=== PATIENT | male | born 1950 | race Caucasian/White ===

== ENCOUNTER 2017-01-29 20:45 | Inpatient (IN) | payer BC, OTHER ==
--- NOTE | 2017-01-29 21:09 | DR.GENAD ---
HPI - PCP Primary Care Physician: NHAN - Complaint/Symptoms Chief Complaint Doctors Comments: Patient admits to having dyspnea a lot due to severe heart disease. He stumbled in the house and his glasses cut his left nasal bridge. He came in for evaluation. Patient states that he has severe heart disease, admits to a pace maker and is on blood thinners. He denies fever , vomiting or diarrhea. Chief Complaint:: SHORT OF BREATH, LACERATION TO LEFT EYE - Source History Provided: Patient - Mode of Arrival Mode of Arrival: EMS - Timing Onset of Chief Complaint: 01/29/17 PMH - PMH Past Medical History: Yes Past Medical History: Asthma, CHF, COPD, Coronary Artery Disease, Hypertension, OR Past Surgical History: Yes Surgical History: Angioplasty/Stents, CABG/Valve Surgery, Other Past Surgical History Comment: PACE MAKER, DEFIBRILLATOR - Family History History of Family Medical Conditions: Yes Family Medical History: Diabetes Mellitus, Sudden Cardiac , Hypertension - Social History Does patient currently use any type of tobacco product: Yes Have you used tobacco products in the last 12 months: Yes Type of Tobacco Use: Cigarettes Does any household member use tobacco: No Alcohol Use: None Do you use any recreational Drugs:: No Lives With: Alone Lives Where: Home - infectious screening In the last 2 months have you had wt loss of >10#?: NO Have you had fever, night sweats or hemotysis?: No Have you traveled outside the country in the last 6 months?: No Isolation: Standard ROS - Review of Systems Constitutional: No Symptoms Reported Eyes: No Symptoms Reported ENTM: No Symptoms Reported Respiratoy: Non-Productive Cough, Short of Breath. negative: Stridor, Hemoptysis Cardiovascular: Other (pacemaker) Genitourinary: No Symptoms Reported Neurological: See HPI Musculoskeletal: No Symptoms Reported ( ) Integumentary: Wound (left nasal bridge) Hematologic/Lymphatic: No Symptoms Reported Endocrine: No Symptoms Reported Psychiatric: No Symptoms Reported All Other Systems: Reviewed and Negative PE - Vital Signs Vitals: Blood Pressure [Left Arm] 117/59 Blood Pressure [Right Arm] 101/49 Blood Pressure 101/49 - General Limitations: No Limitations General Appearance: Alert, In No Apparent Distress - Head Head Exam: Normal Inspection, Atraumatic - Eyes Eye exam: Normal Appearance, PERRL, EOMI - ENT ENT Exam: Normal Exam External Ear Exam: Normal External Inspection TM/Canal Exam: Bilateral Normal Nose Exam: Normal Nose Exam Mouth Exam: Normal Inspection Throat Exam: Normal Inspection - Neck Neck Exam: Normal Inspection - Chest Chest Inspection: Normal Inspection - Respiratory Respiratory Exam: Normal Lung Sounds Bilat Respiratory Exam: Bilateral Clear to Auscultation - Cardiovascular Cardiovascular Exam: Regular Rate - Abdominal Exam Abdominal Exam: Normal Inspection Abdominal Tenderness: negative: RUQ, RLQ, LUQ, LLQ, Epigastrium, Suprapubic, Diffuse, Mild, Moderate, Severe, Other - Extremities Extremities Exam: Normal Inspection - Back Back Exam: Normal Inspection - Neurologic Neurological Exam: Alert, Oriented X3, CN II-XII Intact - Psychiatric Psychiatric Exam: Normal Affect - Skin Skin Exam: Warm, Dry, Intact Course - Reevaluation 1st: Improved ROR - Labs Reviewed Laboratory Results Reviewed?: Yes (elevated potassium; preRenal azotemia.) Result Diagrams: 01/29/17 21:30 01/29/17 21:30 Laboratory: WBC 6.2 X10^3/uL (3.6-10.0) 01/29/17 21:30 RBC 3.74 X10^6/uL (4.7-6.0) L 01/29/17 21:30 Hgb 8.8 g/dL (13.5-18.0) L 01/29/17 21:30 Hct 29.2 % (42.0-54.0) L 01/29/17 21:30 MCV 78.0 fL (80.0-100.0) L 01/29/17 21:30 MCH 23.5 pg (27.0-34.0) L 01/29/17 21:30 MCHC 30.0 g/dL (33.0-35.0) L 01/29/17 21:30 RDW 22.5 % (11.6-16.5) H 01/29/17 21:30 Plt Count 203 X10^3/uL (150.0-450.0) 01/29/17 21:30 Plt Count Comment Adequate (ADEQUATE) 01/29/17 21:30 MPV 8.0 fL (7.4-11.0) 01/29/17 21:30 Neut % 57.2 % (42.0-75.0) 01/29/17 21:30 Lymph % 29.7 % (21.0-51.0) 01/29/17 21:30 [place] % 8.5 % (0.0-13.0) 01/29/17 21:30 Eos % 1.4 % (0.9-2.9) 01/29/17 21:30 Baso % 3.2 % (0.2-1.0) H 01/29/17 21:30 Neut # 3.6 x10^3/uL (2.2-4.8) 01/29/17 21:30 Lymph # 1.9 X10^3/uL (1.3-2.9) 01/29/17 21:30 [place] # 0.5 x10^3/uL (0.3-0.8) 01/29/17 21:30 Eos # 0.1 x10^3/uL (0.0-0.2) 01/29/17 21:30 Baso # 0.2 X10^3/uL (0.0-0.1) H 01/29/17 21:30 Absolute Nucleated RBC 0.0 /100WBC 01/29/17 21:30 Total Counted 100 01/29/17 21:30 Neutrophils % (Manual) 60 % (39-76) 01/29/17 21:30 Band Neutrophils % 5 % (0-10) 01/29/17 21:30 Lymphocytes % (Manual) 31 % (13-43) 01/29/17 21:30 Monocytes % (Manual) 3 % (4-9) L 01/29/17 21:30 Eosinophils % (Manual) 1 % (0-6) 01/29/17 21:30 Plt Morphology Comment Normal (NORMAL) 01/29/17 21:30 RBC Morphology Abnormal (NORMAL) 01/29/17 21:30 Hypochromasia 1+ A 01/29/17 21:30 Anisocytosis 2+ A 01/29/17 21:30 INR Target Range - 01/29/17 21:30 INR 1.23 (0.8-1.3) 01/29/17 21:30 PTT 35.4 SECONDS (22.9-36.5) 01/29/17 21:30 PTT Comment - 01/29/17 21:30 D-Dimer 737 ng/mL (0-400) H* 01/29/17 21:30 Sample Site Lbra 01/29/17 23:36 ABG pH 7.330 (7.35-7.45) L 01/29/17 23:36 ABG pCO2 40.0 mmHg (35.0-45.0) 01/29/17 23:36 ABG pO2 49.0 mmHg (80.0-100.0) L* 01/29/17 23:36 ABG HCO3 21.1 mmol/L (22-26) L 01/29/17 23:36 ABG O2 Saturation 81.0 % (90-100) L* 01/29/17 23:36 ABG Base Excess -4.5 mmol/L (-2.0-2.0) L 01/29/17 23:36 Brad Test Na 01/29/17 23:36 FiO2 21 01/29/17 23:36 Blood Gas Comments Adeola abg well-mtf 01/29/17 23:36 Sodium 142 mmol/L (136-145) 01/29/17 21:30 Corrected Sodium 143 mmol/L (136-145) 01/29/17 21:30 Potassium 5.7 mmol/L (3.5-5.1) H 01/29/17 21:30 Chloride 108 mmol/L (98-107) H 01/29/17 21:30 Carbon Dioxide 23.3 mmol/L (21-32) 01/29/17 21:30 BUN 26 mg/dL (7-18) H 01/29/17 21:30 Creatinine 2.38 mg/dL (0.70-1.30) H 01/29/17 21:30 Est GFR (MDRD) Af Amer 35 (>60) L 01/29/17 21:30 Est GFR (MDRD) Non-Af 29 (>60) L 01/29/17 21:30 Glucose 122 mg/dL (65-99) H 01/29/17 21:30 Calcium 8.0 mg/dL (8.5-10.1) L 01/29/17 21:30 Corrected Calcium TNP 01/29/17 21:30 Total Bilirubin 0.20 mg/dL (0.2-1.0) 01/29/17 21:30 AST 22 Units/L (15-37) 01/29/17 21:30 ALT 17 Units/L (12-78) 01/29/17 21:30 Alkaline Phosphatase 117 Units/L (46-116) H 01/29/17 21:30 B-Natriuretic Peptide 3020 pg/mL (0-79) H* 01/29/17 21:30 Total Protein 7.1 g/dL (6.4-8.2) 01/29/17 21:30 Albumin 3.4 g/dL (3.4-5.0) 01/29/17 21:30 Globulin 3.7 g/dL (2.5-4.5) 01/29/17 21:30 Albumin/Globulin Ratio 0.9 Ratio (1.1-2.1) L 01/29/17 21:30 - XRAY XRAY Interpreted by: Radiologist (Chest: The heart is mildly enlarged and more prominent. The pulmonary vessels are slightly engorged centrally and more prominent. There are hazy bibasilar interstitial opacities with mild airspace opacity along the right lower lobe which is more apparent. No effusion is seen. There is pacemaker on the left which is unchanged. Impression: Mild cardiomegaly and mild pulmonary edema which is more prominent. Hazy basilar infiltrate or atelectasis.) - Diagnosis Discharge Problem: Pulmonary edema with congestive heart failure - Discharge Plan Condition: Stable - Follow ups/Referrals Follow ups/Referrals: DAYAMI JUSTIN [Primary Care Provider] - 3 days - Instructions
[2017-01-29 21:40] LABS: BASOPHILS # (AUTO) 0.2 X10^3/uL (0.0-0.1); BASOPHILS % (AUTO) 3.2 % (0.2-1.0); EOSINOPHILS # (AUTO) 0.1 x10^3/uL (0.0-0.2); EOSINOPHILS % (AUTO) 1.4 % (0.9-2.9); HEMATOCRIT 29.2 % (42.0-54.0); HEMOGLOBIN 8.8 g/dL (13.5-18.0); LYMPHOCYTES # (AUTO) 1.9 X10^3/uL (1.3-2.9); LYMPHOCYTES % (AUTO) 29.7 % (21.0-51.0); MEAN CORPUSCULAR HEMOGLOBIN 23.5 pg (27.0-34.0); MONOCYTES # (AUTO) 0.5 x10^3/uL (0.3-0.8); MONOCYTES % (AUTO) 8.5 % (0.0-13.0); NEUTROPHILS # (AUTO) 3.6 x10^3/uL (2.2-4.8); NEUTROPHILS % (AUTO) 57.2 % (42.0-75.0); PLATELET COUNT 203 X10^3/uL (150.0-450.0); RED BLOOD COUNT 3.74 X10^6/uL (4.7-6.0); RED CELL DISTRIBUTION WIDTH 22.5 % (11.6-16.5); WHITE BLOOD COUNT 6.2 X10^3/uL (3.6-10.0)
--- NOTE | 2017-01-29 21:47 | RAD ---
HISTORY: Shortness of breath Study: Portable AP chest Comparison: 05/05/2016 Findings: The heart is mildly enlarged and more prominent. The pulmonary vessels are slightly engorged central ly and more prominent . There are hazy bibasilar interstitial opacities with mild airspace opacity a long the right lower lobe which more apparent. No effusion is seen. There is a pacemaker on the left which is unchanged. IMPRESSION: Mild cardiomegaly and mild pulmonary edema which is more prominent . Hazy basilar infiltrate or atelectasis. Reported By:
[2017-01-29 21:54] LABS: ALANINE AMINOTRANSFERASE 17 Units/L (12-78); ALBUMIN 3.4 g/dL (3.4-5.0); ALKALINE PHOSPHATASE 117 Units/L (46-116); ASPARTATE AMINO TRANSFERASE 22 Units/L (15-37); BLOOD UREA NITROGEN 26 mg/dL (7-18); CARBON DIOXIDE 23.3 mmol/L (21-32); CHLORIDE 108 mmol/L (98-107); COR NA(FOR HYPERGLY) 143 mmol/L (136-145); CREATININE 2.38 mg/dL (0.70-1.30); GLUCOSE 122 mg/dL (65-99); SODIUM 142 mmol/L (136-145); TOTAL PROTEIN 7.1 g/dL (6.4-8.2); eGFR BLACK RACES 35 (>60); eGFR NON BLACK RACES 29 (>60)
[2017-01-29] MEDS ORDERED: NS 1000 ML 1,000 ML ONE (22:08)
[2017-01-29] MEDS ORDERED: NS 1000 ML 1,000 ML IV ONE (22:13)
[2017-01-29 22:17] LABS: ANISOCYTOSIS 2+; BAND NEUTROPHILS % 5 % (0-10); HYPOCHROMASIA 1+; PLATELET MORPHOLOGY COMMENT NORMAL (NORMAL)
[2017-01-29] MEDS ORDERED: HumuLIN R IV ONE (22:17)
[2017-01-29] MEDS ORDERED: D50W ABBOJECT SYR IV ONE (22:18)
[2017-01-29] MEDS ORDERED: LASIX IVP ONE ×2 (22:20→22:58)
[2017-01-29 22:23] LABS: D DIMER 737 ng/mL (0-400)
[2017-01-29] MEDS ORDERED: PROVENTIL NEB TX 0.083% 2.5MG/ 3ML NEB ONE (22:25)
[2017-01-29] MEDS ORDERED: ATROVENT NEB TX 0.02% ONE (22:46)
[2017-01-29] MEDS ORDERED: SALINE 3% 15 ML NEB TX ONE (22:47)
[2017-01-29] MEDS ORDERED: CIPRO IV 400 MG PREMIX* 400 MG/200 ML IV.SOLN. IV SCH (23:45)
[2017-01-29] MEDS ORDERED: CIPRO IV 400 MG PREMIX* 400 MG/200 ML IV.SOLN. IV ONE (23:46)
[2017-01-29] MEDS ORDERED: PROVENTIL NEB TX 0.083% 2.5MG/ 3ML ONE (23:49)
[2017-01-30] MEDS ORDERED: CIPRO IV 400 MG PREMIX* 400 MG/200 ML IV.SOLN. IV ONE (00:06)
[2017-01-30] MEDS ORDERED: ZOFRAN INJ 4 MG VIAL IVP PRN (00:41)
[2017-01-30] MEDS ORDERED: MORPHINE SULFATE INJ 4 MG IVP PRN (00:42)
[2017-01-30] MEDS ORDERED: ZOSYN VIAL 4.5 GM 4.5 GM in NS 100 ML IV + SPIKE MINIBAG* 100 ML IV SCH (00:45)
[2017-01-30 01:43] VITALS: BMI 22.4
[2017-01-30 05:38] LABS: BASOPHILS # (AUTO) 0.2 X10^3/uL (0.0-0.1); BASOPHILS % (AUTO) 2.6 % (0.2-1.0); EOSINOPHILS % (AUTO) 0.3 % (0.9-2.9); HEMOGLOBIN 8.3 g/dL (13.5-18.0); LYMPHOCYTES # (AUTO) 1.1 X10^3/uL (1.3-2.9); LYMPHOCYTES % (AUTO) 16.8 % (21.0-51.0); MEAN CORPUSCULAR HEMOGLOBIN 23.2 pg (27.0-34.0); MEAN CORPUSCULAR HGB CONC 29.8 g/dL (33.0-35.0); MEAN PLATELET VOLUME 8.4 fL (7.4-11.0); MONOCYTES # (AUTO) 0.6 x10^3/uL (0.3-0.8); MONOCYTES % (AUTO) 9.4 % (0.0-13.0); NEUTROPHILS # (AUTO) 4.5 x10^3/uL (2.2-4.8); NEUTROPHILS % (AUTO) 70.9 % (42.0-75.0); PLATELET COUNT 196 X10^3/uL (150.0-450.0); RED BLOOD COUNT 3.59 X10^6/uL (4.7-6.0); RED CELL DISTRIBUTION WIDTH 22.9 % (11.6-16.5); WHITE BLOOD COUNT 6.4 X10^3/uL (3.6-10.0)
[2017-01-30 05:45] LABS: ALBUMIN 3.2 g/dL (3.4-5.0); CALCIUM 7.7 mg/dL (8.5-10.1); CARBON DIOXIDE 22.8 mmol/L (21-32); COR CA(FOR HYPOALB) 8.3 mg/dL (8.5-10.1); CREATININE 2.27 mg/dL (0.70-1.30); TOTAL PROTEIN 6.9 g/dL (6.4-8.2)
[2017-01-30 06:03] LABS: ANISOCYTOSIS 2+; HYPOCHROMASIA 1+; PLATELET MORPHOLOGY COMMENT NORMAL (NORMAL)
[2017-01-30] MEDS: PROVENTIL NEB TX 0.083% 2.5MG/ 3ML NEB SCH ×4 (08:57→21:37)
[2017-01-30] MEDS ORDERED: [UNRECOGNIZED DRUG - OTHER] PO PRN (09:49)
[2017-01-30] MEDS: NICODERM PATCH 21 MG/24 HR TD SCH (11:00)
[2017-01-30] MEDS: LASIX IVP SCH ×2 (11:00→20:17)
[2017-01-30] MEDS: BUSPAR PO SCH (11:21)
--- NOTE | 2017-01-30 11:27 | CT ---
CT head without contrast Indication: Fall with left eye injury Comparison: 11/26/2015 Technique: CT images of the head were obtained without contrast per protocol. Automatic exposure con trol was utilized. Findings: There is mild generalized age-appropriate brain atrophy with concomitant ventricular and s ulcal enlargement, similar to prior. No acute bleed, mass, mass effect, or abnormal extra-axial nery ection identified. No acute calvarial fracture is seen. The visualized paranasal sinuses and mastoid air cells are clear. Impression: No evidence for acute intracranial abnormality. Reported By:
[2017-01-30] MEDS: PENTASA CR PO SCH ×2 (11:56→20:24)
--- NOTE | 2017-01-30 11:57 | CT ---
HISTORY: Injury, fall, left facial trauma Study: Maxillofacial CT without contrast Comparison: None Technique: Axial non contrast images with coronal and sagittal reformats. Dose reduction procedures were used with MA/kv adjusted for body size. Findings: There is no evidence for mandibular fracture. There is a slightly depressed fracture of the left christine e of the nasal bone. There is no evidence for maxillofacial fracture. There is no evidence for orbit al fracture. The globes are intact. The retro orbital soft tissues are normal. The nasal septum is n ear midline. The sinuses are clear. IMPRESSION: Slightly depressed fracture of the left side of the nasal bone Reported By:
--- NOTE | 2017-01-30 12:37 | DR.H&P ---
H&P - History & Physical for Day of: H&P Date: 01/30/17 - Chief Complaint Chief Complaint: LEFT EYE LACERATION, SOB, SYNCOPE - Allergies Allergies/Adverse Reactions: Allergies Allergy/AdvReac Type Severity Reaction Status Date / Time No Known Drug Allergy Allergy Verified 01/14/16 23:27 - History of Present Illness History of Present Illness: ER ADMISSION AFTER PRESENTING WITH CO Patient admits to having dyspnea a lot due to severe heart disease. He stumbled in the house and his glasses cut his left nasal bridge. He came in for evaluation. Patient states that he has severe heart disease, admits to a pace maker and is on blood thinners. He denies fever, vomiting or diarrhea. pt has pmh of cad, copd, oa, chf, crf, depression. pt admitted for cardiac monitoring, resp care, further evaluation of syncope. - Past Medical History Past Medical History: Anxiety, Arthritis, Asthma, CHF, COPD, Coronary Artery Disease, Depression, GERD, Hypertension, CT, Renal Disease Additional Medical History: GLAUCOMA, BACK PAIN, INSOMNIA - Past Surgical History Surgical History: Angioplasty/Stents, CABG/Valve Surgery, Other Additional Surgical History: PACEMAKER, DEFIBRILLATOR - Family History Family Medical History: Diabetes Mellitus, Cancer, Sudden Cardiac , Hypertension - Social History Does patient currently use any type of tobacco product: Yes Have you used tobacco products in the last 12 months: Yes Type of Tobacco Use: Cigarettes Does any household member use tobacco: No Alcohol Use: None Drug Use: None - Review of Systems Constitutional: Weakness Eyes: Vision Change (r/t left eye lid injury with mild edema) Respiratory: Cough, Shortness of Breath, Wheezing Cardiovascular: Palpitations, Paroxysmal Noc. Dyspnea, Edema, Light Headedness Gastrointestinal: No Symptoms Reported Genitourinary: No Symptoms Reported Musculoskeletal: Back Pain, Leg Pain Skin: Wound (left inner eye lid upper and lower) Neurological: Weakness - Physical Exam Vital Signs: Temperature 98.5 F Pulse Rate [Left Radial] 72 Respiratory Rate 20 Blood Pressure [Left Arm] 135/62 Blood Pressure [Right Arm] 137/63 O2 Sat by Pulse Oximetry 91 Oriented: Normal Eyes: Other Ear: Normal Nose: Normal Throat: Normal Respiratory: Diminished Throughout, Rhonchi Throughout Cardiovascular: Irregular, Edema (+1 edema ) Auscultation: Bowel Sounds: Normal Palpation: Normal Tenderness: Normal Skin: Decreased Turgur, Wound (laceration to left inner corner of upper lid, inner corner of left lower lid), Ecchymosis Musculoskeletal: Leg, Back:Thoracic, Back:Lumbar, Motor Deficit (lower extremity weakness) Psychiatric: Anxiety Speech Pattern: Clear - Assessment/Plan (1) Syncope Qualifiers: Syncope type: S Encounter type: E Status: Acute Plan: admit, cardiac monitoring, bp control. resume home medication, iv hydration. resp therapy (2) Head injury Qualifiers: Encounter type: E Status: Acute (3) CHF (congestive heart failure) Qualifiers: Congestive heart failure type: C Congestive heart failure chronicity: C Status: Chronic (4) COPD (chronic obstructive pulmonary disease) Qualifiers: COPD type: C Chronic bronchitis type: C Emphysema type: E Status: Chronic (5) DJD (degenerative joint disease), lumbar Qualifiers: Spinal osteoarthritis complication: other spinal osteoarthritis Qualified Code(s): M47.896 - Other spondylosis, lumbar region Status: Chronic (6) GERD (gastroesophageal reflux disease) Qualifiers: Esophagitis presence: E Status: Chronic (7) Hyperlipidemia Qualifiers: Hyperlipidemia type: H Status: Chronic (8) Hypertension Qualifiers: Hypertension type: H Status: Chronic (9) Pacemaker Status: Chronic
--- NOTE | 2017-01-30 12:46 | PCM.PROG ---
Progress Note - Progress Note for Day of Date: 01/30/17 - Subjective Subjective: left eye pain and joshi, continue sob. CT HEAD AND FACIAL BONES DUE TO SYNCOPE WITH HEAD/FACE INJURY. PLAN TO RESTART HOME MEDS, CHF MANAGEMENT, LASIX 40MG IV BID, STRICT I & OS, CARDIAC MONITORING, BB AND LIPID CONTROL. REPEAT AM LABS, CXR - Past Medical Family Social History Allergies: Allergies No Known Drug Allergy Allergy (Verified 01/14/16 23:27) - Vital Signs and I&O's Vital Signs: Temperature 98.5 F Pulse Rate [Left Radial] 72 Respiratory Rate 20 Blood Pressure [Left Arm] 135/62 Blood Pressure [Right Arm] 137/63 O2 Sat by Pulse Oximetry 91 Intake and Output: Intake & Output 01/28/17 01/29/17 01/30/17 01/31/17 11:59 11:59 11:59 11:59 Intake Total 120 Output Total 200 Balance -80 - Physical Exam Oriented: Normal Eyes: Other Ear: Normal Nose: Normal Throat: Normal Cardiovascular: Irregular, Edema (+1 edema ) Auscultation: Bowel Sounds: Normal Tenderness: Normal Skin: Decreased Turgur, Wound (laceration to left inner corner of upper lid, inner corner of left lower lid), Ecchymosis Musculoskeletal: Leg, Back:Thoracic, Back:Lumbar, Motor Deficit (lower extremity weakness) Psychiatric: Anxiety Speech Pattern: Clear - Laboratory and Diagnostics Result Diagrams: 01/30/17 03:45 01/30/17 03:45 Labs: Laboratory WBC 6.4 X10^3/uL (3.6-10.0) 01/30/17 03:45 RBC 3.59 X10^6/uL (4.7-6.0) L 01/30/17 03:45 Hgb 8.3 g/dL (13.5-18.0) L 01/30/17 03:45 Hct 28.0 % (42.0-54.0) L 01/30/17 03:45 MCV 78.0 fL (80.0-100.0) L 01/30/17 03:45 MCH 23.2 pg (27.0-34.0) L 01/30/17 03:45 MCHC 29.8 g/dL (33.0-35.0) L 01/30/17 03:45 RDW 22.9 % (11.6-16.5) H 01/30/17 03:45 Plt Count 196 X10^3/uL (150.0-450.0) 01/30/17 03:45 Plt Count Comment Adequate (ADEQUATE) 01/30/17 03:45 MPV 8.4 fL (7.4-11.0) 01/30/17 03:45 Neut % 70.9 % (42.0-75.0) 01/30/17 03:45 Lymph % 16.8 % (21.0-51.0) L 01/30/17 03:45 [place] % 9.4 % (0.0-13.0) 01/30/17 03:45 Eos % 0.3 % (0.9-2.9) L 01/30/17 03:45 Baso % 2.6 % (0.2-1.0) H 01/30/17 03:45 Neut # 4.5 x10^3/uL (2.2-4.8) 01/30/17 03:45 Lymph # 1.1 X10^3/uL (1.3-2.9) L 01/30/17 03:45 [place] # 0.6 x10^3/uL (0.3-0.8) 01/30/17 03:45 Eos # 0.0 x10^3/uL (0.0-0.2) 01/30/17 03:45 Baso # 0.2 X10^3/uL (0.0-0.1) H 01/30/17 03:45 Absolute Nucleated RBC 0.1 /100WBC 01/30/17 03:45 Total Counted 100 01/29/17 21:30 Neutrophils % (Manual) 60 % (39-76) 01/29/17 21:30 Band Neutrophils % 5 % (0-10) 01/29/17 21:30 Lymphocytes % (Manual) 31 % (13-43) 01/29/17 21:30 Monocytes % (Manual) 3 % (4-9) L 01/29/17 21:30 Eosinophils % (Manual) 1 % (0-6) 01/29/17 21:30 Plt Morphology Comment Normal (NORMAL) 01/30/17 03:45 RBC Morphology Abnormal (NORMAL) 01/30/17 03:45 Hypochromasia 1+ A 01/30/17 03:45 Anisocytosis 2+ A 01/30/17 03:45 INR Target Range - 01/29/17 21:30 INR 1.23 (0.8-1.3) 01/29/17 21:30 PTT 35.4 SECONDS (22.9-36.5) 01/29/17 21:30 PTT Comment - 01/29/17 21:30 D-Dimer 737 ng/mL (0-400) H* 01/29/17 21:30 Sample Site Lbra 01/29/17 23:36 ABG pH 7.330 (7.35-7.45) L 01/29/17 23:36 ABG pCO2 40.0 mmHg (35.0-45.0) 01/29/17 23:36 ABG pO2 49.0 mmHg (80.0-100.0) L* 01/29/17 23:36 ABG HCO3 21.1 mmol/L (22-26) L 01/29/17 23:36 ABG O2 Saturation 81.0 % (90-100) L* 01/29/17 23:36 ABG Base Excess -4.5 mmol/L (-2.0-2.0) L 01/29/17 23:36 Brad Test Na 01/29/17 23:36 FiO2 21 01/29/17 23:36 Blood Gas Comments Adeola abg well-mtf 01/29/17 23:36 Sodium 141 mmol/L (136-145) 01/30/17 03:45 Corrected Sodium 141 mmol/L (136-145) 01/30/17 03:45 Potassium 5.1 mmol/L (3.5-5.1) 01/30/17 03:45 Chloride 106 mmol/L (98-107) 01/30/17 03:45 Carbon Dioxide 22.8 mmol/L (21-32) 01/30/17 03:45 BUN 26 mg/dL (7-18) H 01/30/17 03:45 Creatinine 2.27 mg/dL (0.70-1.30) H 01/30/17 03:45 Est GFR (MDRD) Af Amer 37 (>60) L 01/30/17 03:45 Est GFR (MDRD) Non-Af 31 (>60) L 01/30/17 03:45 Glucose 113 mg/dL (65-99) H 01/30/17 03:45 Calcium 7.7 mg/dL (8.5-10.1) L 01/30/17 03:45 Corrected Calcium 8.3 mg/dL (8.5-10.1) L 01/30/17 03:45 Total Bilirubin 0.20 mg/dL (0.2-1.0) 01/30/17 03:45 AST 26 Units/L (15-37) 01/30/17 03:45 ALT 12 Units/L (12-78) 01/30/17 03:45 Alkaline Phosphatase 112 Units/L (46-116) 01/30/17 03:45 B-Natriuretic Peptide 3020 pg/mL (0-79) H* 01/29/17 21:30 Total Protein 6.9 g/dL (6.4-8.2) 01/30/17 03:45 Albumin 3.2 g/dL (3.4-5.0) L 01/30/17 03:45 Globulin 3.7 g/dL (2.5-4.5) 01/30/17 03:45 Albumin/Globulin Ratio 0.9 Ratio (1.1-2.1) L 01/30/17 03:45 - Plan (1) Syncope Status: Acute Qualifiers: Syncope type: S Encounter type: E Plan: admit, cardiac monitoring, bp control. resume home medication, iv hydration. resp therapy (2) CHF (congestive heart failure) Status: Chronic Qualifiers: Congestive heart failure type: C Congestive heart failure chronicity: C Plan: STRICT I & O'S BB AND DIG. IV LASIX, DAILY WEIGHTS, REPEAT AM CXR (3) Head injury Status: Acute Qualifiers: Encounter type: E (4) COPD (chronic obstructive pulmonary disease) Status: Chronic Qualifiers: COPD type: C Chronic bronchitis type: C Emphysema type: E Plan: CONTINUE RESP THERAPY (5) DJD (degenerative joint disease), lumbar Status: Chronic Qualifiers: Spinal osteoarthritis complication: other spinal osteoarthritis Qualified Code(s): M47.896 - Other spondylosis, lumbar region (6) GERD (gastroesophageal reflux disease) Status: Chronic Qualifiers: Esophagitis presence: E (7) Hyperlipidemia Status: Chronic Qualifiers: Hyperlipidemia type: H (8) Hypertension Status: Chronic Qualifiers: Hypertension type: H (9) Pacemaker Status: Chronic
[2017-01-30] MEDS ORDERED: SNACK - Diabetic Appropriate PO SCH (20:00)
[2017-01-30] MEDS: COLACE CAP 100 MG PO SCH (20:17)
[2017-01-30] MEDS: M.S. CONTIN 30 MG EXTENDED RELEASE PO PRN (20:18)
[2017-01-30] MEDS: AMBIEN PO SCH (20:18)
[2017-01-30] MEDS: COREG TAB 3.125 MG PO SCH (20:18)
[2017-01-30] MEDS ORDERED: [UNRECOGNIZED DRUG - OTHER] PO SCH (21:00)
[2017-01-30] MEDS ORDERED: MESALAMINE PO SCH (21:00)
[2017-01-30] MEDS ORDERED: ADVAIR DISKUS 250/50 IN SCH (21:00)
[2017-01-30] MEDS: PULMICORT NEB TX 0.5 MG NEB SCH (21:38)
[2017-01-31] MEDS: NORCO 10/325 TAB PO PRN ×2 (01:49→07:57)
[2017-01-31 03:57] LABS: BASOPHILS # (AUTO) 0.1 X10^3/uL (0.0-0.1); BASOPHILS % (AUTO) 1.1 % (0.2-1.0); EOSINOPHILS % (AUTO) 0.6 % (0.9-2.9); HEMATOCRIT 24.7 % (42.0-54.0); HEMOGLOBIN 7.6 g/dL (13.5-18.0); LYMPHOCYTES # (AUTO) 1.6 X10^3/uL (1.3-2.9); MEAN CORPUSCULAR HEMOGLOBIN 23.6 pg (27.0-34.0); MEAN CORPUSCULAR HGB CONC 30.9 g/dL (33.0-35.0); MEAN CORPUSCULAR VOLUME 76.3 fL (80.0-100.0); MEAN PLATELET VOLUME 8.5 fL (7.4-11.0); MONOCYTES # (AUTO) 0.6 x10^3/uL (0.3-0.8); MONOCYTES % (AUTO) 10.8 % (0.0-13.0); NEUTROPHILS # (AUTO) 3.1 x10^3/uL (2.2-4.8); NEUTROPHILS % (AUTO) 57.5 % (42.0-75.0); PLATELET COUNT 162 X10^3/uL (150.0-450.0); RED BLOOD COUNT 3.24 X10^6/uL (4.7-6.0); RED CELL DISTRIBUTION WIDTH 22.2 % (11.6-16.5); WHITE BLOOD COUNT 5.3 X10^3/uL (3.6-10.0)
[2017-01-31 04:21] LABS: CARBON DIOXIDE 27.1 mmol/L (21-32); COR CA(FOR HYPOALB) 8.8 mg/dL (8.5-10.1); CREATININE 2.4 mg/dL (0.70-1.30); TOTAL PROTEIN 6.3 g/dL (6.4-8.2)
[2017-01-31 06:08] LABS: ANISOCYTOSIS 2+; HYPOCHROMASIA 1+; PLATELET MORPHOLOGY COMMENT NORMAL (NORMAL)
[2017-01-31] MEDS ORDERED: LASIX PO SCH (09:00)
[2017-01-31] MEDS ORDERED: PHARMACY CONSULT - DOSE _____ XX SCH (09:00)
[2017-01-31] MEDS: PULMICORT NEB TX 0.5 MG NEB SCH ×2 (09:03→20:08)
[2017-01-31] MEDS: PROVENTIL NEB TX 0.083% 2.5MG/ 3ML NEB SCH ×4 (09:04→20:08)
[2017-01-31] MEDS: LASIX IVP SCH ×2 (09:24→21:27)
[2017-01-31] MEDS: COREG TAB 3.125 MG PO SCH ×2 (09:25→21:25)
[2017-01-31] MEDS: LANOXIN PO SCH (09:25)
[2017-01-31] MEDS: ZyrTEC TAB 10 MG PO SCH (09:25)
[2017-01-31] MEDS: ECOTRIN TAB 325 MG PO SCH (09:25)
[2017-01-31] MEDS: COLACE CAP 100 MG PO SCH ×2 (09:25→21:25)
[2017-01-31] MEDS: ALDACTONE TAB 25 MG PO SCH (09:25)
[2017-01-31] MEDS: BUSPAR PO SCH (09:25)
[2017-01-31] MEDS: CORDARONE TAB 200 MG PO SCH (09:26)
[2017-01-31] MEDS: NICODERM PATCH 21 MG/24 HR TD SCH (09:27)
[2017-01-31] MEDS: ZESTRIL TAB 5 MG PO SCH (09:27)
[2017-01-31] MEDS: M.S. CONTIN 30 MG EXTENDED RELEASE PO PRN (09:28)
[2017-01-31] MEDS: PENTASA CR PO SCH ×2 (09:36→21:26)
[2017-01-31] MEDS ORDERED: NS 250 ML IV 250 ML IV ONE (09:41)
[2017-01-31] MEDS ORDERED: LEVAQUIN PREMIX IV 750 MG 750 MG/150 ML BAG IV SCH (10:00)
[2017-01-31] MEDS ORDERED: ZOFRAN INJ 4 MG VIAL 16 MG, ATIVAN INJ 2 MG VIAL 1 MG, DECADRON INJ 10 MG in NS 50 ML I... IV ONE (12:44)
[2017-01-31] MEDS ORDERED: ZOFRAN INJ 4 MG VIAL 16 MG, ATIVAN INJ 2 MG VIAL 1 MG, DECADRON INJ 10 MG in NS 50 ML I... IV SCH (14:00)
[2017-01-31] MEDS ORDERED: TYLENOL 325 MG TAB PO PRN (15:30)
[2017-01-31] MEDS ORDERED: NS 500 ML IV 500 ML IV ONE (15:30)
[2017-01-31] MEDS: XANAX PO PRN (18:19)
--- NOTE | 2017-01-31 18:59 | PCM.PROG ---
Progress Note - Progress Note for Day of Date: 01/31/17 - Subjective Subjective: PT STATES SOB IMPROVING, PT FEELS BETTER OVERALL, STILL LOWER EXTREMITY MUSCLE WEAKNESS AND ANXIETY. PLAN TO CONSULT PT, CONTINUE IV LASIX REPEAT AM LABS, TYPE AND SCREEN AND OCCULT STOOL DUE TO HGB 7.6, PT HAS CRF - Past Medical Family Social History Past Med/Fam/Surg Hx: No changes since H&P Allergies: Allergies No Known Drug Allergy Allergy (Verified 01/14/16 23:27) - Review of Systems ROS: No change since H&P - Vital Signs and I&O's Vital Signs: Temperature 98.3 F Pulse Rate [Left Radial] 70 Pulse Rate 70 Respiratory Rate 20 Blood Pressure [Left Arm] 127/57 Blood Pressure [Right Arm] 103/50 O2 Sat by Pulse Oximetry 96 Intake and Output: Intake & Output 01/29/17 01/30/17 01/31/17 02/01/17 11:59 11:59 11:59 11:59 Intake Total 120 1210 750 Output Total 200 700 Balance -80 510 750 - Physical Exam Oriented: Normal Eyes: Other Ear: Normal Nose: Normal Throat: Normal Respiratory: Wheezes Cardiovascular: Irregular, Edema (+1 edema ) Auscultation: Bowel Sounds: Normal Tenderness: Normal Skin: Decreased Turg[place], Wound (laceration to left inner corner of upper lid, inner corner of left lower lid), Ecchymosis Musculoskeletal: Leg, Back:Thoracic, Back:Lumbar, Motor Deficit (lower extremity weakness) Psychiatric: Anxiety Speech Pattern: Clear, Appropriate - Laboratory and Diagnostics Result Diagrams: 01/31/17 03:25 01/31/17 03:25 Labs: Laboratory WBC 5.3 X10^3/uL (3.6-10.0) 01/31/17 03:25 RBC 3.24 X10^6/uL (4.7-6.0) L 01/31/17 03:25 Hgb 7.6 g/dL (13.5-18.0) L 01/31/17 03:25 Hct 24.7 % (42.0-54.0) L 01/31/17 03:25 MCV 76.3 fL (80.0-100.0) L 01/31/17 03:25 MCH 23.6 pg (27.0-34.0) L 01/31/17 03:25 MCHC 30.9 g/dL (33.0-35.0) L 01/31/17 03:25 RDW 22.2 % (11.6-16.5) H 01/31/17 03:25 Plt Count 162 X10^3/uL (150.0-450.0) 01/31/17 03:25 Plt Count Comment Adequate (ADEQUATE) 01/31/17 03:25 MPV 8.5 fL (7.4-11.0) 01/31/17 03:25 Neut % 57.5 % (42.0-75.0) 01/31/17 03:25 Lymph % 30.0 % (21.0-51.0) 01/31/17 03:25 [place] % 10.8 % (0.0-13.0) 01/31/17 03:25 Eos % 0.6 % (0.9-2.9) L 01/31/17 03:25 Baso % 1.1 % (0.2-1.0) H 01/31/17 03:25 Neut # 3.1 x10^3/uL (2.2-4.8) 01/31/17 03:25 Lymph # 1.6 X10^3/uL (1.3-2.9) 01/31/17 03:25 [place] # 0.6 x10^3/uL (0.3-0.8) 01/31/17 03:25 Eos # 0.0 x10^3/uL (0.0-0.2) 01/31/17 03:25 Baso # 0.1 X10^3/uL (0.0-0.1) 01/31/17 03:25 Absolute Nucleated RBC 0.2 /100WBC 01/31/17 03:25 Total Counted 100 01/29/17 21:30 Neutrophils % (Manual) 60 % (39-76) 01/29/17 21:30 Band Neutrophils % 5 % (0-10) 01/29/17 21:30 Lymphocytes % (Manual) 31 % (13-43) 01/29/17 21:30 Monocytes % (Manual) 3 % (4-9) L 01/29/17 21:30 Eosinophils % (Manual) 1 % (0-6) 01/29/17 21:30 Plt Morphology Comment Normal (NORMAL) 01/31/17 03:25 RBC Morphology Abnormal (NORMAL) 01/31/17 03:25 Hypochromasia 1+ A 01/31/17 03:25 Anisocytosis 2+ A 01/31/17 03:25 INR Target Range - 01/29/17 21:30 INR 1.23 (0.8-1.3) 01/29/17 21:30 PTT 35.4 SECONDS (22.9-36.5) 01/29/17 21:30 PTT Comment - 01/29/17 21:30 D-Dimer 737 ng/mL (0-400) H* 01/29/17 21:30 Sample Site Cancelled 01/29/17 23:36 ABG pH Cancelled 01/29/17 23:36 ABG pCO2 Cancelled 01/29/17 23:36 ABG pO2 Cancelled 01/29/17 23:36 ABG HCO3 Cancelled 01/29/17 23:36 ABG O2 Saturation Cancelled 01/29/17 23:36 ABG Base Excess Cancelled 01/29/17 23:36 Brad Test Cancelled 01/29/17 23:36 A-a Gradient Cancelled 01/29/17 23:36 FiO2 Cancelled 01/29/17 23:36 Blood Gas Comments Cancelled 01/29/17 23:36 Sodium 143 mmol/L (136-145) 01/31/17 03:25 Corrected Sodium 144 mmol/L (136-145) 01/31/17 03:25 Potassium 4.1 mmol/L (3.5-5.1) 01/31/17 03:25 Chloride 106 mmol/L (98-107) 01/31/17 03:25 Carbon Dioxide 27.1 mmol/L (21-32) 01/31/17 03:25 BUN 26 mg/dL (7-18) H 01/31/17 03:25 Creatinine 2.40 mg/dL (0.70-1.30) H 01/31/17 03:25 Est GFR (MDRD) Af Amer 35 (>60) L 01/31/17 03:25 Est GFR (MDRD) Non-Af 29 (>60) L 01/31/17 03:25 Glucose 143 mg/dL (65-99) H 01/31/17 03:25 Calcium 8.0 mg/dL (8.5-10.1) L 01/31/17 03:25 Corrected Calcium 8.8 mg/dL (8.5-10.1) 01/31/17 03:25 Total Bilirubin 0.40 mg/dL (0.2-1.0) 01/31/17 03:25 AST 17 Units/L (15-37) 01/31/17 03:25 ALT 14 Units/L (12-78) 01/31/17 03:25 Alkaline Phosphatase 101 Units/L (46-116) 01/31/17 03:25 B-Natriuretic Peptide 3020 pg/mL (0-79) H* 01/29/17 21:30 Total Protein 6.3 g/dL (6.4-8.2) L 01/31/17 03:25 Albumin 3.0 g/dL (3.4-5.0) L 01/31/17 03:25 Globulin 3.3 g/dL (2.5-4.5) 01/31/17 03:25 Albumin/Globulin Ratio 0.9 Ratio (1.1-2.1) L 01/31/17 03:25 Blood Type O POSITIVE 01/31/17 16:00 Antibody Screen Negative 01/31/17 16:00 Crossmatch See Detail 01/31/17 16:00 - Plan (1) Syncope Status: Acute Qualifiers: Syncope type: S Encounter type: E Plan: cardiac monitoring, bp control. resume home medication, iv hydration. resp therapy (2) CHF (congestive heart failure) Status: Chronic Qualifiers: Congestive heart failure type: C Congestive heart failure chronicity: C Plan: STRICT I & O'S BB AND DIG. IV LASIX, DAILY WEIGHTS, REPEAT AM CXR (3) Head injury Status: Acute Qualifiers: Encounter type: E (4) COPD (chronic obstructive pulmonary disease) Status: Chronic Qualifiers: COPD type: C Chronic bronchitis type: C Emphysema type: E Plan: CONTINUE RESP THERAPY (5) DJD (degenerative joint disease), lumbar Status: Chronic Qualifiers: Spinal osteoarthritis complication: other spinal osteoarthritis Qualified Code(s): M47.896 - Other spondylosis, lumbar region (6) GERD (gastroesophageal reflux disease) Status: Chronic Qualifiers: Esophagitis presence: E (7) Hyperlipidemia Status: Chronic Qualifiers: Hyperlipidemia type: H (8) Hypertension Status: Chronic Qualifiers: Hypertension type: H (9) Pacemaker Status: Chronic (10) Anemia Status: Acute Qualifiers: Anemia type: A Iron deficiency anemia type: chronic blood loss Vitamin B12 deficiency anemia type: V Folate deficiency anemia type: F Bone marrow failure anemia type: B Hemolytic anemia type: H Other causes of anemia: O Qualified Code(s): D50.0 - Iron deficiency anemia secondary to blood loss ( chronic) Plan: TYPE AND SCREEN, ANEMIA PANEL AND OCCULT STOOL. MONITOR
[2017-01-31] MEDS: AMBIEN PO SCH (21:25)
[2017-02-01 05:36] LABS: ALBUMIN 2.9 g/dL (3.4-5.0); CALCIUM 8.8 mg/dL (8.5-10.1); CARBON DIOXIDE 31.6 mmol/L (21-32); COR CA(FOR HYPOALB) 9.7 mg/dL (8.5-10.1); CREATININE 1.89 mg/dL (0.70-1.30); TOTAL PROTEIN 6.7 g/dL (6.4-8.2)
[2017-02-01 06:21] LABS: EOSINOPHILS % (AUTO) 0.1 % (0.9-2.9); HEMATOCRIT 28.7 % (42.0-54.0); HEMOGLOBIN 8.7 g/dL (13.5-18.0); LYMPHOCYTES # (AUTO) 0.1 X10^3/uL (1.3-2.9); LYMPHOCYTES % (AUTO) 6.5 % (21.0-51.0); MEAN CORPUSCULAR HEMOGLOBIN 23.3 pg (27.0-34.0); MEAN CORPUSCULAR HGB CONC 30.4 g/dL (33.0-35.0); MEAN CORPUSCULAR VOLUME 76.5 fL (80.0-100.0); MEAN PLATELET VOLUME 8.7 fL (7.4-11.0); MONOCYTES # (AUTO) 0.1 x10^3/uL (0.3-0.8); MONOCYTES % (AUTO) 3.6 % (0.0-13.0); NEUTROPHILS % (AUTO) 88.8 % (42.0-75.0); PLATELET COUNT 182 X10^3/uL (150.0-450.0); RED BLOOD COUNT 3.76 X10^6/uL (4.7-6.0); RED CELL DISTRIBUTION WIDTH 22.1 % (11.6-16.5); WHITE BLOOD COUNT 2.3 X10^3/uL (3.6-10.0)
[2017-02-01 07:11] LABS: ANISOCYTOSIS 2+; HYPOCHROMASIA 1+; PLATELET MORPHOLOGY COMMENT NORMAL (NORMAL)
--- NOTE | 2017-02-01 07:15 | RAD ---
HISTORY: Follow up congestive heart failure Study: Chest one view Comparison: January 29, 2017 Findings: There is a pacemaker present on the left. The heart remains enlarged. The aorta is ectatic and calci fied. Pulmonary venous congestion remains. The previously noted interstitial edema appears to have r esolved. A small right pleural effusion may be present. No acute alveolar infiltrates are identified . The bony thorax is unremarkable. IMPRESSION: 1. Cardiomegaly with improving congestive heart failure now with only residual pulmonary venous maida estion remaining 2. No acute infiltrates 3. Suspect small right pleural effusion Reported By:
[2017-02-01] MEDS ORDERED: CHECK PATCH XX SCH (09:00)
[2017-02-01] MEDS: PROVENTIL NEB TX 0.083% 2.5MG/ 3ML NEB SCH (09:01)
[2017-02-01] MEDS: PULMICORT NEB TX 0.5 MG NEB SCH (09:01)
[2017-02-01] MEDS: COREG TAB 3.125 MG PO SCH (09:47)
[2017-02-01] MEDS: ECOTRIN TAB 325 MG PO SCH (09:47)
[2017-02-01] MEDS: ZyrTEC TAB 10 MG PO SCH (09:48)
[2017-02-01] MEDS: ALDACTONE TAB 25 MG PO SCH (09:48)
[2017-02-01] MEDS: CORDARONE TAB 200 MG PO SCH (09:48)
[2017-02-01] MEDS: LANOXIN PO SCH (09:48)
[2017-02-01] MEDS: ZESTRIL TAB 5 MG PO SCH (09:48)
[2017-02-01] MEDS: NICODERM PATCH 21 MG/24 HR TD SCH (09:49)
[2017-02-01] MEDS: XANAX PO PRN (09:49)
[2017-02-01] MEDS: BUSPAR PO SCH (09:49)
[2017-02-01] MEDS: COLACE CAP 100 MG PO SCH (09:49)
[2017-02-01] MEDS: LASIX IVP SCH (09:49)
[2017-02-01] MEDS: NORCO 10/325 TAB PO PRN (09:58)
[2017-02-01] MEDS: PENTASA CR PO SCH (09:58)
[2017-02-01 10:23] VITALS: BP 113/56
== END 2017-02-01 10:50 | disposition home or self-care (01) | DRG 292 ==
LOC: ER 20:48 → MED/SURG 01-30 00:38
PROVIDERS: ADMIT Obstetrics & Gynecology Obstetrics; ATTEND Internal Medicine
DX: I50.1 Left ventricular failure, unspecified (principal); R55 Syncope and collapse; J90 Pleural effusion, not elsewhere classified; S01.21XA Laceration without foreign body of nose, initial encounter; W18.39XA Other fall on same level, initial encounter; I10 Essential (primary) hypertension; I25.10 Atherosclerotic heart disease of native coronary artery without angina pectoris; Z79.01 Long term (current) use of anticoagulants; J44.9 Chronic obstructive pulmonary disease, unspecified; M47.896 Other spondylosis, lumbar region; K21.9 Gastro-esophageal reflux disease without esophagitis; E78.2 Mixed hyperlipidemia; R51 Headache; D50.0 Iron deficiency anemia secondary to blood loss (chronic); R26.89 Other abnormalities of gait and mobility; Z95.0 Presence of cardiac pacemaker; F41.8 Other specified anxiety disorders; S02.2XXA Fracture of nasal bones, initial encounter for closed fracture; Y92.098 Other place in other non-institutional residence as the place of occurrence of the external cause; R94.30 Abnormal result of cardiovascular function study, unspecified; R06.02 Shortness of breath
CPT/HCPCS: 36415; 36600; 70450; 70486; 71010; 80053; 80162; 82607; 82728; 82746; 82803; 83540; 83880; 84466; 85025; 85378; 85610; 85730; 86850; 86900; 86901; 86922; 87070; 87205; 94640; 94760; 96365; 96367; 96374; 96375; 99284; A4216; A4222; J0744; J1940; J1956; J7613; J7626; J7644

== ENCOUNTER 2017-03-23 22:00 | Emergency (ER) | payer OTHER ==
[2017-03-23 22:10] VITALS: BP 129/62; BMI 21.8
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
[2017-03-23] MEDS ORDERED: TORADOL 30 MG VIAL IVP STA (22:53)
[2017-03-23] MEDS ORDERED: DUONEB 0.5 MG/3 MG NEB ONE (22:54)
[2017-03-23] MEDS ORDERED: SOLU-Medrol 125 MG VIAL IVP ONE (22:54)
[2017-03-23] MEDS ORDERED: DUONEB 0.5 MG/3 MG ONE (23:01)
[2017-03-23] MEDS ORDERED: SOLU-Medrol 125 MG VIAL ONE (23:14)
[2017-03-23] MEDS ORDERED: TORADOL 30 MG VIAL ONE (23:14)
[2017-03-23 23:24] LABS: BASOPHILS # (AUTO) 0.1 X10^3/uL (0.0-0.1); BASOPHILS % (AUTO) 1.4 % (0.2-1.0); EOSINOPHILS # (AUTO) 0.1 x10^3/uL (0.0-0.2); EOSINOPHILS % (AUTO) 0.9 % (0.9-2.9); HEMATOCRIT 26.7 % (42.0-54.0); HEMOGLOBIN 8.2 g/dL (13.5-18.0); LYMPHOCYTES # (AUTO) 1.2 X10^3/uL (1.3-2.9); LYMPHOCYTES % (AUTO) 17.8 % (21.0-51.0); MEAN CORPUSCULAR HEMOGLOBIN 24.9 pg (27.0-34.0); MEAN CORPUSCULAR HGB CONC 30.5 g/dL (33.0-35.0); MEAN CORPUSCULAR VOLUME 81.8 fL (80.0-100.0); MEAN PLATELET VOLUME 8.1 fL (7.4-11.0); MONOCYTES # (AUTO) 0.7 x10^3/uL (0.3-0.8); NEUTROPHILS # (AUTO) 4.8 x10^3/uL (2.2-4.8); NEUTROPHILS % (AUTO) 69.9 % (42.0-75.0); PLATELET COUNT 156 X10^3/uL (150.0-450.0); RED BLOOD COUNT 3.27 X10^6/uL (4.7-6.0); RED CELL DISTRIBUTION WIDTH 22.2 % (11.6-16.5); WHITE BLOOD COUNT 6.9 X10^3/uL (3.6-10.0)
[2017-03-23 23:44] LABS: ALANINE AMINOTRANSFERASE 11 Units/L (12-78); ALBUMIN 2.8 g/dL (3.4-5.0); ALKALINE PHOSPHATASE 95 Units/L (46-116); ASPARTATE AMINO TRANSFERASE 26 Units/L (15-37); BLOOD UREA NITROGEN 19 mg/dL (7-18); CALCIUM 7.3 mg/dL (8.5-10.1); CARBON DIOXIDE 22.1 mmol/L (21-32); CHLORIDE 113 mmol/L (98-107); COR CA(FOR HYPOALB) 8.3 mg/dL (8.5-10.1); CREATINE KINASE 305 Units/L (39-308); CREATINE KINASE MB 2.9 ng/mL (0-4.0); CREATININE 1.88 mg/dL (0.70-1.30); GLUCOSE 90 mg/dL (65-99); MAGNESIUM 2.7 mg/dL (1.7-2.9); SODIUM 143 mmol/L (136-145); TOTAL PROTEIN 5.7 g/dL (6.4-8.2); TROPONIN I 0.04 ng/mL (0-1.5); eGFR BLACK RACES 47 (>60); eGFR NON BLACK RACES 38 (>60)
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
[2017-03-23 23:55] LABS: ANISOCYTOSIS 2+; PLATELET MORPHOLOGY COMMENT NORMAL (NORMAL)
--- NOTE | 2017-03-23 23:58 | RAD ---
Right shoulder three views Indication: Pain. Findings: There is no cortical lucency or malalignment. Mild AC joint degenerative changes noted. Impression: No acute right shoulder fracture. Reported By:
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
--- NOTE | 2017-03-24 00:22 | CT ---
CT lumbar spine without contrast Indication: Back pain. Technique: Helical images through the lumbar spine without contrast. Coronal and sagittal reformats provided.. Comparison: November 26, 2015 CT Findings: There is multilevel disk degenerative change and facet arthropathy with disc space narrowi ng worst at L5-S1. There is slight anterolisthesis of L5 on S1, on a degenerative basis. This is unc hanged from December 06, 2015 CT lumbar spine. There is no cortical lucency or malalignment. For vertebral body heights are normal. Vascular plaque is noted. Spinal canal is patent. Impression: No acute lumbar spine fracture. Multilevel degenerative changes as above. Moderate neura l foraminal narrowing at L4-L5 bilaterally Reported By:
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
[2017-03-24] MEDS ORDERED: NS 50 ML IV + SPIKE MINIBAG* 50 ML IV ONE (00:43)
[2017-03-24] MEDS ORDERED: ROCEPHIN VIAL 1 GM ONE (00:43)
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
[2017-03-24] MEDS ORDERED: ROCEPHIN VIAL 1 GM 1 GM in NS 50 ML IV + SPIKE MINIBAG* 50 ML IV SCH (01:00)
== END 2017-03-24 01:24 | disposition home or self-care (01) ==
LOC: ER 22:00
DX: S40.011A Contusion of right shoulder, initial encounter (principal); S80.02XA Contusion of left knee, initial encounter; J44.9 Chronic obstructive pulmonary disease, unspecified; M51.36 Other intervertebral disc degeneration, lumbar region; V89.2XXA Person injured in unspecified motor-vehicle accident, traffic, initial encounter; Y92.89 Other specified places as the place of occurrence of the external cause
CPT/HCPCS: 36415; 70450; 71010; 72125; 72131; 73030; 73560; 74176; 80053; 82550; 82553; 83735; 84484; 85025; 85610; 85730; 93005; 93010; 94640; 96365; 96374; 96375; 99283; A4222; J0696; J1885; J2930; J7620

== ENCOUNTER 2017-04-09 04:42 | Inpatient (IN) | payer OTHER ==
[2017-04-09] MEDS ORDERED: LASIX IVP ONE ×2 (04:56→04:57)
--- NOTE | 2017-04-09 04:59 | DR.GENAD ---
HPI - PCP Primary Care Physician: Marylou - HPI Comment HPI Comment: SICK SINCE THE BEGGING OF THE YEAR. PROGRESSIVE SOB AND BACK PAIN.INCREASING EDEMA OF LOWER EXTREMITY WITH PAIN. HAVE AMBULATORY DIFFICULTY. HAVE CAD S/P CABG AND CARDIAC STENT. ALSO HISTORY OF CHF AND COPD. HAVE NON PRODUCTIVE COUGH. NO FEVER. - Complaint/Symptoms Chief Complaint Doctors Comments: CHEST PAIN, LOWER EXTREMITIES AND LOWER BACK PAIN ALSO. Chief Complaint:: "I just haven't been feeling well for a while now. I have had some chest pain and I have had some trouble breathing. My legs also have been hurting me." - Nurses notes reviewed Nurses Notes Review: Yes - Source History Provided: Patient - Mode of Arrival Mode of Arrival: EMS - Timing Onset of Chief Complaint: 04/07/17 Came on: Gradually - Duration Duration: Constant Duration: Weeks - Severity Severity: Moderate PMH - PMH Past Medical History: Yes Past Medical History: Anxiety, Arthritis, Asthma, CHF, COPD, Coronary Artery Disease, Depression, GERD, Hypertension, OH, Renal Disease Past Surgical History: Yes Surgical History: Angioplasty/Stents, CABG/Valve Surgery, Other - Family History History of Family Medical Conditions: Yes Family Medical History: Diabetes Mellitus, Cancer, Sudden Cardiac , Hypertension - Social History Does patient currently use any type of tobacco product: Yes Have you used tobacco products in the last 12 months: Yes Type of Tobacco Use: Cigarettes Does any household member use tobacco: Yes Alcohol Use: None Do you use any recreational Drugs:: No Lives With: Family Lives Where: Home - infectious screening In the last 2 months have you had wt loss of >10#?: NO Have you had fever, night sweats or hemotysis?: No Have you traveled outside the country in the last 6 months?: No Isolation: Standard ROS - Review of Systems Constitutional: Weakness, Fatigue, Loss of Appetite. negative: Chills, Diaphoresis, Fever Eyes: negative: Eye Pain ENTM: Nose Congestion. negative: Ear Pain, Nose Discharge, Throat Pain Respiratoy: Non-Productive Cough, Short of Breath, Wheezing, Other (EXERTIONAL DYSPNEA.). negative: Hemoptysis Cardiovascular: Chest Pain, Edema Gastrointestinal/Abdominal: Nausea. negative: Abdominal Pain, Diarrhea, Vomiting Genitourinary: negative: Dysuria, Hematuria Neurological: Headache, Weakness, Dizziness Musculoskeletal: Back Pain, Joint Pain, Muscle Pain Integumentary: Lesions, Bruises Hematologic/Lymphatic: Easy Bleeding, Easy Bruising Endocrine: negative: Flushing All Other Systems: Reviewed and Negative PE - Vital Signs Vitals: Temperature 98.2 F Pulse Rate 71 Respiratory Rate 28 Blood Pressure [Left Arm] 121/58 Blood Pressure [Right Arm] 113/56 Blood Pressure 138/62 O2 Sat by Pulse Oximetry 100 - General Limitations: No Limitations General Appearance: Alert, In Distress - Head Head Exam: Normal Inspection - Eyes Eye exam: Normal Appearance, PERRL, EOMI. negative: Scleral Icterus, Conjunctival Injection - ENT ENT Exam: Normal External Ear Exam External Ear Exam: Normal External Inspection TM/Canal Exam: Bilateral Normal Nose Exam: Normal Nose Exam Mouth Exam: Normal Inspection Throat Exam: Normal Inspection - Neck Neck Exam: Trachea Midline. negative: Tenderness, Meningismus - Chest Chest Inspection: Symmetric Chest Wall Rise - Respiratory Respiratory Exam: Respiratory Distress Respiratory Exam: Bilateral Wheezing, Bilateral Rhonchi, Upper Wheezing, Upper Rhonchi, Lower Wheezing, Lower Rhonchi - Cardiovascular Cardiovascular Exam: Regular Rate, Normal Rhythm, Normal Heart Sounds - Abdominal Exam Abdominal Exam: Normal Bowel Sounds, Soft. negative: Tenderness - Extremities Extremities Exam: Edema, Other (ULCERS LEG) - Back Back Exam: Paraspinal Tenderness - Neurologic Neurological Exam: Alert, Oriented X3 - Psychiatric Psychiatric Exam: Normal Affect, Normal Mood - Skin Skin Exam: Erythema, Other (STASIS ULCERS ENTREMITIES. SKIN TEAR, AVULSION BACK RIGHT SHOULDER.) MDM - Differential Diagnosis Differential Diagnosis: CHEST PAIN, OH, CAD, CHF, COPD, PNEUMONIA, Course - Treatment Treatment: SEE ORDERS. - Consultation Consultation Comments: PATIENT ACCEPTED FOR ADMIT BY DR. BLAND SERVICE. - Education/Counseling Education/Counseling: Patient, Education Educated On: Treatment, Diagnosis ROR - Labs Reviewed Laboratory Results Reviewed?: Yes Result Diagrams: 04/09/17 05:05 04/09/17 05:05 - XRAY XRAY Interpreted by: Radiologist XRAY Findings: REPORT DISCUSS WITH PATIENT. - EKG Rhythm: NSR (EKG NOTED.) - Diagnosis Discharge Problem: COPD exacerbation, Bronchitis CHF (congestive heart failure) Qualifiers: Congestive heart failure type: combined Congestive heart failure chronicity: acute on chronic Qualified Code(s): I50.43 - Acute on chronic combined systolic (congestive) and diastolic (congestive) heart failure Chest pain Qualifiers: Chest pain type: intercostal pain Qualified Code(s): R07.82 - Intercostal pain Anemia Qualifiers: Anemia type: other cause Other causes of anemia: other cause, not classified Qualified Code(s): D64.89 - Other specified anemias - Discharge Plan Disposition: 09 ADMITTED INPATIENT Condition: Stable - Follow ups/Referrals - Instructions
[2017-04-09] MEDS ORDERED: DUONEB 0.5 MG/3 MG NEB ONE (05:20)
[2017-04-09] MEDS ORDERED: SOLU-Medrol 125 MG VIAL IVP ONE (05:20)
[2017-04-09] MEDS ORDERED: MORPHINE SULFATE INJ 4 MG IVP ONE (05:21)
[2017-04-09] MEDS ORDERED: ZOFRAN INJ 4 MG VIAL IVP ONE (05:21)
[2017-04-09 05:39] LABS: BASOPHILS # (AUTO) 0.1 X10^3/uL (0.0-0.1); BASOPHILS % (AUTO) 1.1 % (0.2-1.0); EOSINOPHILS # (AUTO) 0.1 x10^3/uL (0.0-0.2); EOSINOPHILS % (AUTO) 1.6 % (0.9-2.9); HEMATOCRIT 25.7 % (42.0-54.0); HEMOGLOBIN 7.8 g/dL (13.5-18.0); LYMPHOCYTES # (AUTO) 1.5 X10^3/uL (1.3-2.9); LYMPHOCYTES % (AUTO) 19.4 % (21.0-51.0); MEAN CORPUSCULAR HEMOGLOBIN 24.3 pg (27.0-34.0); MEAN CORPUSCULAR HGB CONC 30.4 g/dL (33.0-35.0); MONOCYTES # (AUTO) 0.7 x10^3/uL (0.3-0.8); NEUTROPHILS # (AUTO) 5.3 x10^3/uL (2.2-4.8); NEUTROPHILS % (AUTO) 68.9 % (42.0-75.0); PLATELET COUNT 169 X10^3/uL (150.0-450.0); RED BLOOD COUNT 3.21 X10^6/uL (4.7-6.0); WHITE BLOOD COUNT 7.7 X10^3/uL (3.6-10.0)
[2017-04-09] MEDS ORDERED: DUONEB 0.5 MG/3 MG ONE (05:47)
[2017-04-09] MEDS ORDERED: SOLU-Medrol 125 MG VIAL ONE (05:51)
[2017-04-09] MEDS ORDERED: MORPHINE SULFATE INJ 4 MG ONE (05:51)
[2017-04-09] MEDS ORDERED: ZOFRAN INJ 4 MG VIAL ONE (05:51)
[2017-04-09 05:57] LABS: BLOOD UREA NITROGEN 22 mg/dL (7-18); CALCIUM 7.8 mg/dL (8.5-10.1); CARBON DIOXIDE 24.6 mmol/L (21-32); CHLORIDE 111 mmol/L (98-107); CREATININE 1.73 mg/dL (0.70-1.30); GLUCOSE 89 mg/dL (65-99); SODIUM 145 mmol/L (136-145); TROPONIN I 0.03 ng/mL (0-1.5); eGFR BLACK RACES 51 (>60); eGFR NON BLACK RACES 42 (>60)
[2017-04-09 06:01] LABS: ALANINE AMINOTRANSFERASE 15 Units/L (12-78); ALKALINE PHOSPHATASE 84 Units/L (46-116); ASPARTATE AMINO TRANSFERASE 45 Units/L (15-37); COR CA(FOR HYPOALB) 8.6 mg/dL (8.5-10.1); CREATINE KINASE 782 Units/L (39-308); TOTAL PROTEIN 6.4 g/dL (6.4-8.2)
[2017-04-09 06:02] LABS: ANISOCYTOSIS 1+; HYPOCHROMASIA SLIGHT; PLATELET MORPHOLOGY COMMENT NORMAL (NORMAL)
[2017-04-09 06:08] LABS: BILIRUBIN,URINE NEGATIVE (NEGATIVE); BLOOD/HEMOGLOBIN,URINE NEGATIVE (NEGATIVE); GLUCOSE, URINE NEGATIVE (NEGATIVE); KETONES,URINE NEGATIVE (NEGATIVE); LEUKOCYTE ESTERASE ,URINE NEGATIVE (NEGATIVE); NITRITES,URINE NEGATIVE (NEGATIVE); PROTEIN,URINE NEGATIVE (NEGATIVE); UROBILINOGEN,URINE NORMAL (NORMAL)
[2017-04-09 06:11] LABS: B-TYPE NATRIURETIC PEPTIDE 2020 pg/mL (0-79)
[2017-04-09 06:22] LABS: APPEARANCE,URINE CLEAR (CLEAR); COLOR,URINE YELLOW (YELLOW); RBC,URINE NONE SEEN /HPF (NEGATIVE)
[2017-04-09 06:23] LABS: BACTERIA,URINE NEGATIVE /HPF (NEGATIVE); SQUAMOUS EPITHELIAL CELL,UR RARE /HPF (NEGATIVE)
[2017-04-09 06:47] LABS: CKMB % 0.9 % (<4)
[2017-04-09] MEDS ORDERED: ROCEPHIN VIAL 1 GM 1 GM in NS 50 ML IV + SPIKE MINIBAG* 50 ML IV ONE (06:58)
[2017-04-09] MEDS ORDERED: NS 50 ML IV + SPIKE MINIBAG* 50 ML IV ONE (07:05)
[2017-04-09] MEDS ORDERED: ROCEPHIN VIAL 1 GM ONE (07:06)
[2017-04-09] MEDS ORDERED: NS 250 ML IV 250 ML IV ONE (07:06)
--- NOTE | 2017-04-09 07:09 | RAD ---
HISTORY: Shortness of breath Study: Chest one view Comparison: March 23, 2017 Findings: The patient is rotated to the left. There is a pacemaker present on the left. The heart is enlarged. No definite congestive heart failure is identified. The aorta is calcified. Diffuse chronic interst itial lung changes are present. No alveolar infiltrates or pleural effusions are identified. The bon y thorax is unremarkable. IMPRESSION: Cardiomegaly without definite congestive heart failure Chronic interstitial lung changes Reported By:
[2017-04-09] MEDS: LASIX IVP SCH ×2 (09:09→21:28)
[2017-04-09] MEDS: ROCEPHIN VIAL 1 GM 1 GM in NS 50 ML IV + SPIKE MINIBAG* 50 ML IV SCH (09:09)
[2017-04-09] MEDS: DUONEB 0.5 MG/3 MG NEB SCH ×4 (09:47→21:34)
[2017-04-09] MEDS: K-DUR TAB 20 MEQ PO SCH ×3 (10:00→21:28)
[2017-04-09 12:09] LABS: CKMB % 0.8 % (<4); CREATINE KINASE 766 Units/L (39-308); TROPONIN I < 0.02 ng/mL (0-1.5)
[2017-04-09 12:10] LABS: CREATINE KINASE MB 6.3 ng/mL (0-4.0)
[2017-04-09] MEDS ORDERED: MORPHINE SULFATE PO PRN (13:07)
[2017-04-09] MEDS: SOLU-Medrol 40 MG VIAL IVP SCH ×2 (14:17→21:29)
[2017-04-09 18:22] LABS: CKMB % 0.7 % (<4); TROPONIN I 0.05 ng/mL (0-1.5)
[2017-04-09 18:23] LABS: CREATINE KINASE MB 4.5 ng/mL (0-4.0)
--- NOTE | 2017-04-09 18:45 | DR.H&P ---
H&P - History & Physical for Day of: H&P Date: 04/09/17 - Chief Complaint Chief Complaint: SOB, CP - Allergies Allergies/Adverse Reactions: Allergies Allergy/AdvReac Type Severity Reaction Status Date / Time No Known Drug Allergies Allergy Verified 04/09/17 06:33 - History of Present Illness History of Present Illness: 66 WM ADMITTED FROM ER AFTER PRESENTING PER EMS WITH CO SOB, CP AND PAIN ALL OVER, PT HAS PMH OF CAD, CHF, COPD, RENAL INSUFF AND OA. 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 PLAN TO ADMIT FOR REPS THERAPY, CARDIAC MONITORING, IT ATBX. WILL RESUME HOME MEDS, REPEAT AM LABS, CXR - Past Medical History Past Medical History: Anxiety, Arthritis, Asthma, CHF, COPD, Coronary Artery Disease, Depression, GERD, Hypertension, [place], Renal Disease Additional Medical History: GLAUCOMA, BACK PAIN, INSOMNIA - Past Surgical History Surgical History: Angioplasty/Stents, CABG/Valve Surgery, Other Additional Surgical History: PACEMAKER, DEFIBRILLATOR - Family History Family Medical History: Diabetes Mellitus, Cancer, Sudden Cardiac , Hypertension - Social History Does patient currently use any type of tobacco product: Yes Have you used tobacco products in the last 12 months: Yes Type of Tobacco Use: None Does any household member use tobacco: No Alcohol Use: None Drug Use: None - Review of Systems Constitutional: Weakness Eyes: No Symptoms Reported ENT: No Symptoms Reported Respiratory: Cough, Shortness of Breath, SOB with Excertion, Wheezing Cardiovascular: Chest Pain, Edema Gastrointestinal: Nausea Genitourinary: No Symptoms Reported Musculoskeletal: Back Pain, Leg Pain Skin: Wound (MULTIPLE SKIN TEARS) - Physical Exam Vital Signs: Temperature 98.0 F Pulse Rate [Right Brachial] 76 Pulse Rate 71 Respiratory Rate 18 Blood Pressure [Right Arm] 149/66 O2 Sat by Pulse Oximetry 96 Oriented: Normal Eyes: Normal Ear: Normal Nose: Normal Throat: Dry Respiratory: Diminished Throughout Cardiovascular: Irregular, Edema Auscultation: Bowel Sounds: Normal Palpation: Normal Tenderness: Normal Skin: Decreased Turgur, Ecchymosis Musculoskeletal: Leg, Back:Thoracic, Back:Lumbar Psychiatric: Anxiety Speech Pattern: Clear, Appropriate - Assessment/Plan (1) COPD exacerbation Status: Acute Plan: ADMIT, RESP THERAPY, SUPPLEMENTAL O2. IV ATBX, TELEMETRY, SERIAL CARDIAC EZYMES, EKG. RESUME HOME MEDS, BP AND LIPID CONTROL. I & OS, DIGOXIN LEVEL. 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 [facility] (2) Chest pain Qualifiers: Chest pain type: intercostal pain Ischemic chest pain type: I Qualified Code(s): R07.82 - Intercostal pain Status: Acute (3) Syncope Qualifiers: Syncope type: S Encounter type: E Status: Acute (4) CHF (congestive heart failure) Qualifiers: Congestive heart failure type: C Congestive heart failure chronicity: C Status: Chronic (5) DJD (degenerative joint disease) of cervical spine Qualifiers: Spinal osteoarthritis complication: S Status: Chronic (6) GERD (gastroesophageal reflux disease) Qualifiers: Esophagitis presence: E Status: Chronic (7) Hypertension Qualifiers: Hypertension type: H Status: Chronic (8) Pacemaker Status: Chronic
[2017-04-09] MEDS: NORCO 10/325 TAB PO PRN (19:50)
[2017-04-09] MEDS ORDERED: PATIENT'S HOME MEDICATION (Potassium Chloride [K-Tab Er] 20 MEQ) PO SCH (21:00)
[2017-04-09] MEDS ORDERED: PATIENT'S HOME MEDICATION (Buspirone Hcl [Buspirone Hcl] 1 TAB) PO SCH (21:00)
[2017-04-09] MEDS: ELIQUIS PO SCH (21:26)
[2017-04-09] MEDS: BUSPAR PO SCH (21:26)
[2017-04-09] MEDS: COREG TAB 3.125 MG PO SCH (21:26)
[2017-04-09] MEDS: ZANTAC PO SCH (21:29)
[2017-04-09 21:55] LABS: CKMB % 0.7 % (<4); CREATINE KINASE MB 3.1 ng/mL (0-4.0); TROPONIN I 0.06 ng/mL (0-1.5)
[2017-04-10] MEDS: DUONEB 0.5 MG/3 MG NEB SCH ×6 (01:11→20:50)
[2017-04-10] MEDS: M.S. CONTIN 30 MG EXTENDED RELEASE PO PRN ×2 (01:18→16:39)
[2017-04-10] MEDS: LASIX PO SCH ×3 (03:45→21:12)
[2017-04-10 05:46] LABS: ALBUMIN 2.7 g/dL (3.4-5.0); CALCIUM 8.2 mg/dL (8.5-10.1); CARBON DIOXIDE 28.4 mmol/L (21-32); CHOL/HDL RATIO 2.6 (0.0-5.0); COR CA(FOR HYPOALB) 9.2 mg/dL (8.5-10.1); CREATININE 1.6 mg/dL (0.70-1.30)
[2017-04-10] MEDS: SOLU-Medrol 40 MG VIAL IVP SCH ×3 (06:37→21:10)
[2017-04-10 07:40] LABS: BASOPHILS % (AUTO) 0.8 % (0.2-1.0); HEMATOCRIT 23.3 % (42.0-54.0); HEMOGLOBIN 7.2 g/dL (13.5-18.0); LYMPHOCYTES # (AUTO) 0.3 X10^3/uL (1.3-2.9); LYMPHOCYTES % (AUTO) 13.3 % (21.0-51.0); MEAN CORPUSCULAR HEMOGLOBIN 24.4 pg (27.0-34.0); MEAN CORPUSCULAR HGB CONC 30.9 g/dL (33.0-35.0); MONOCYTES # (AUTO) 0.1 x10^3/uL (0.3-0.8); MONOCYTES % (AUTO) 4.4 % (0.0-13.0); NEUTROPHILS # (AUTO) 2.1 x10^3/uL (2.2-4.8); NEUTROPHILS % (AUTO) 81.5 % (42.0-75.0); PLATELET COUNT 138 X10^3/uL (150.0-450.0); RED BLOOD COUNT 2.95 X10^6/uL (4.7-6.0); RED CELL DISTRIBUTION WIDTH 21.7 % (11.6-16.5); WHITE BLOOD COUNT 2.6 X10^3/uL (3.6-10.0)
[2017-04-10 08:18] LABS: ANISOCYTOSIS 1+; HYPOCHROMASIA 1+; PLATELET MORPHOLOGY COMMENT NORMAL (NORMAL)
[2017-04-10] MEDS: ROCEPHIN VIAL 1 GM 1 GM in NS 50 ML IV + SPIKE MINIBAG* 50 ML IV SCH (09:19)
[2017-04-10] MEDS: BUSPAR PO SCH ×2 (09:20→21:12)
[2017-04-10] MEDS: CORDARONE TAB 200 MG PO SCH (09:20)
[2017-04-10] MEDS: ZANTAC PO SCH ×2 (09:21→21:11)
[2017-04-10] MEDS: LANOXIN PO SCH (09:21)
[2017-04-10] MEDS: ELIQUIS PO SCH ×2 (09:21→21:13)
[2017-04-10] MEDS: COREG TAB 3.125 MG PO SCH ×2 (09:21→21:12)
[2017-04-10] MEDS: K-DUR TAB 20 MEQ PO SCH ×3 (09:21→21:11)
[2017-04-10] MEDS: LASIX IVP SCH (09:25)
[2017-04-10] MEDS ORDERED: ALPRAZOLAM 0.5 MG PO PRN (09:32)
[2017-04-10] MEDS ORDERED: TYLENOL #3 TAB (W/CODEINE) PO PRN (09:32)
[2017-04-10] MEDS ORDERED: AMBIEN PO PRN (09:32)
[2017-04-10] MEDS ORDERED: CARVEDILOL PO SCH (09:45)
--- NOTE | 2017-04-10 10:01 | RAD ---
HISTORY: Respiratory distress. Study: Portable chest. Comparison: Portable chest dated April 09, 2017. Findings: Stable appearing multilead left chest cardiac pacemaker. Cardiomegaly that appears unchanged. Promin ent perihilar vasculature with some cephalization of vessels and increase in diffuse alveolar/inters titial markings. Blunting of the bilateral costophrenic angles, which may represent small pleural ef fusions. No obvious pneumothorax. The osseous structures appear unchanged. IMPRESSION: Constellation of findings likely representing pulmonary edema secondary to congestive he art failure. Underlying infiltrate not entirely excluded. Reported By:
[2017-04-10 10:02] LABS: FREE T4 (FREE THYROXINE) 0.73 ng/dL (0.76-1.46); TSH (3RD GENERATION) 0.303 uIU/mL (0.358-3.74)
[2017-04-10] MEDS: NEURONTIN CAP 300 MG PO SCH ×4 (13:15→21:11)
[2017-04-10] MEDS ORDERED: NS 250 ML IV 0 ML IV ONE (17:49)
[2017-04-10] MEDS: NICODERM PATCH 21 MG/24 HR TD SCH (18:12)
[2017-04-10] MEDS ORDERED: NS 500 ML IV 500 ML IV ONE (18:17)
--- NOTE | 2017-04-10 20:08 | PCM.PROG ---
Progress Note - Progress Note for Day of Date: 04/10/17 - Subjective Subjective: CONTINUE CO WEAKNESS, SOB, WHEEZING, BACK PAIN - Past Medical Family Social History Past Med/Fam/Surg Hx: No changes since H&P Allergies: Allergies No Known Drug Allergies Allergy (Verified 04/09/17 06:33) - Review of Systems ROS: No change since H&P - Vital Signs and I&O's Vital Signs: Temperature 99.3 F Pulse Rate [Right Brachial] 70 Pulse Rate 75 Respiratory Rate 18 Blood Pressure [Right Arm] 135/64 O2 Sat by Pulse Oximetry 100 Intake and Output: Intake & Output 04/08/17 04/09/17 04/10/17 04/11/17 11:59 11:59 11:59 11:59 Intake Total 790 544 Output Total 200 1525 Balance 590 -981 - Physical Exam Oriented: Normal Eyes: Normal Ear: Normal Nose: Normal Throat: Dry Respiratory: Diminished, Wheezes Cardiovascular: Irregular, Edema Auscultation: Bowel Sounds: Normal Tenderness: Normal Skin: Decreased Turgur, Ecchymosis Musculoskeletal: Leg, Back:Thoracic, Back:Lumbar Psychiatric: Anxiety Speech Pattern: Clear, Appropriate - Laboratory and Diagnostics Result Diagrams: 04/10/17 06:53 04/10/17 03:10 Labs: Laboratory WBC 2.6 X10^3/uL (3.6-10.0) L 04/10/17 06:53 RBC 2.95 X10^6/uL (4.7-6.0) L 04/10/17 06:53 Hgb 7.2 g/dL (13.5-18.0) L 04/10/17 06:53 Hct 23.3 % (42.0-54.0) L 04/10/17 06:53 MCV 79.0 fL (80.0-100.0) L 04/10/17 06:53 MCH 24.4 pg (27.0-34.0) L 04/10/17 06:53 MCHC 30.9 g/dL (33.0-35.0) L 04/10/17 06:53 RDW 21.7 % (11.6-16.5) H 04/10/17 06:53 Plt Count 138 X10^3/uL (150.0-450.0) L 04/10/17 06:53 Plt Count Comment Adequate (ADEQUATE) 04/10/17 06:53 MPV 8.0 fL (7.4-11.0) 04/10/17 06:53 Neut % 81.5 % (42.0-75.0) H 04/10/17 06:53 Lymph % 13.3 % (21.0-51.0) L 04/10/17 06:53 [place] % 4.4 % (0.0-13.0) 04/10/17 06:53 Eos % 0.0 % (0.9-2.9) L 04/10/17 06:53 Baso % 0.8 % (0.2-1.0) 04/10/17 06:53 Neut # 2.1 x10^3/uL (2.2-4.8) L 04/10/17 06:53 Lymph # 0.3 X10^3/uL (1.3-2.9) L 04/10/17 06:53 [place] # 0.1 x10^3/uL (0.3-0.8) L 04/10/17 06:53 Eos # 0.0 x10^3/uL (0.0-0.2) 04/10/17 06:53 Baso # 0.0 X10^3/uL (0.0-0.1) 04/10/17 06:53 Absolute Nucleated RBC 0.8 /100WBC 04/10/17 06:53 Total Counted 100 04/10/17 06:53 Neutrophils % (Manual) 94 % (39-76) H 04/10/17 06:53 Lymphocytes % (Manual) 6 % (13-43) L 04/10/17 06:53 Plt Morphology Comment Normal (NORMAL) 04/10/17 06:53 RBC Morphology Abnormal (NORMAL) 04/10/17 06:53 Hypochromasia 1+ A 04/10/17 06:53 Anisocytosis 1+ A 04/10/17 06:53 INR Target Range - 04/09/17 05:05 INR 1.29 (0.8-1.3) 04/09/17 05:05 PTT 52.8 SECONDS (22.9-36.5) H 04/09/17 05:05 PTT Comment - 04/09/17 05:05 Sodium 144 mmol/L (136-145) 04/10/17 03:10 Corrected Sodium 145 mmol/L (136-145) 04/10/17 03:10 Potassium 4.4 mmol/L (3.5-5.1) 04/10/17 03:10 Chloride 108 mmol/L (98-107) H 04/10/17 03:10 Carbon Dioxide 28.4 mmol/L (21-32) 04/10/17 03:10 BUN 23 mg/dL (7-18) H 04/10/17 03:10 Creatinine 1.60 mg/dL (0.70-1.30) H 04/10/17 03:10 Est GFR (MDRD) Af Amer 56 (>60) L 04/10/17 03:10 Est GFR (MDRD) Non-Af 46 (>60) L 04/10/17 03:10 Glucose 162 mg/dL (65-99) H 04/10/17 03:10 Calcium 8.2 mg/dL (8.5-10.1) L 04/10/17 03:10 Corrected Calcium 9.2 mg/dL (8.5-10.1) 04/10/17 03:10 Magnesium 2.3 mg/dL (1.7-2.9) 04/09/17 05:05 Iron 15 ug/dL (50-175) L 04/10/17 03:10 TIBC 310 ug/dL (250-450) 04/10/17 03:10 % Saturation 4.8 % (11.0-46.0) L 04/10/17 03:10 Total Bilirubin 0.20 mg/dL (0.2-1.0) 04/10/17 03:10 AST 24 Units/L (15-37) 04/10/17 03:10 ALT 11 Units/L (12-78) L 04/10/17 03:10 Alkaline Phosphatase 76 Units/L (46-116) 04/10/17 03:10 Creatine Kinase 465 Units/L (39-308) H 04/09/17 21:20 CK-MB (CK-2) 3.1 ng/mL (0-4.0) 04/09/17 21:20 CK/CKMB % Calc 0.7 % (<4) 04/09/17 21:20 Troponin I 0.06 ng/mL (0-1.5) 04/09/17 21:20 B-Natriuretic Peptide 2020 pg/mL (0-79) H* 04/09/17 05:05 Total Protein 6.0 g/dL (6.4-8.2) L 04/10/17 03:10 Albumin 2.7 g/dL (3.4-5.0) L 04/10/17 03:10 Globulin 3.3 g/dL (2.5-4.5) 04/10/17 03:10 Albumin/Globulin Ratio 0.8 Ratio (1.1-2.1) L 04/10/17 03:10 Triglycerides 51 mg/dL (0-150) 04/10/17 03:10 Cholesterol 133 mg/dL (0-200) 04/10/17 03:10 LDL Cholesterol, Calc 71 mg/dL (0-100) 04/10/17 03:10 HDL Cholesterol 52 mg/dL (40-60) 04/10/17 03:10 Cholesterol/HDL Ratio 2.6 (0.0-5.0) 04/10/17 03:10 Free T4 0.73 ng/dL (0.76-1.46) L 04/10/17 03:10 TSH 3rd Generation 0.303 uIU/mL (0.358-3.74) L 04/10/17 03:10 Specimen Type Clean catch urine 04/09/17 06:00 Urine Color Yellow (YELLOW) 04/09/17 06:00 Urine Appearance Clear (CLEAR) 04/09/17 06:00 Urine pH 5.0 (5.0 - 8.0) 04/09/17 06:00 Ur Specific [place] 1.010 (1.000-1.030) 04/09/17 06:00 Urine Protein Negative (NEGATIVE) 04/09/17 06:00 Urine Glucose (UA) Negative (NEGATIVE) 04/09/17 06:00 Urine Ketones Negative (NEGATIVE) 04/09/17 06:00 Urine Occult Blood Negative (NEGATIVE) 04/09/17 06:00 Urine Nitrite Negative (NEGATIVE) 04/09/17 06:00 Urine Bilirubin Negative (NEGATIVE) 04/09/17 06:00 Urine Urobilinogen Normal (NORMAL) 04/09/17 06:00 Ur Leukocyte Esterase Negative (NEGATIVE) 04/09/17 06:00 Urine RBC None seen /HPF (NEGATIVE) 04/09/17 06:00 Urine WBC None seen /HPF (NEGATIVE) 04/09/17 06:00 Ur Squamous Epith Cells Rare /HPF (NEGATIVE) 04/09/17 06:00 Urine Bacteria Negative /HPF (NEGATIVE) 04/09/17 06:00 Ur Culture Indicated? No/not indicated 04/09/17 06:00 Digoxin 0.95 ng/mL (0.9-2) 04/09/17 17:36 Urine Opiates Screen Negative (NEG=<300) 04/09/17 14:10 Urine Methadone Screen Negative (NEG=<300) 04/09/17 14:10 Ur Barbiturates Screen Negative (NEG=<200) 04/09/17 14:10 Ur Phencyclidine Scrn Negative (NEG=<25) 04/09/17 14:10 Ur Amphetamines Screen Negative (NEG=<1000) 04/09/17 14:10 U Benzodiazepines Scrn Negative (NEG=<200) 04/09/17 14:10 Urine Cocaine Screen Negative (NEG=<300) 04/09/17 14:10 U Marijuana (THC) Screen Negative (NEG=<50) 04/09/17 14:10 Ethyl Alcohol mg/dL < 3 mg/dL (0-19.9) 04/09/17 13:53 Blood Type O POSITIVE 04/10/17 15:50 Antibody Screen Negative 04/10/17 15:50 Crossmatch See Detail 04/10/17 15:50 - Plan (1) COPD exacerbation Status: Acute Plan: RESP THERAPY, SUPPLEMENTAL O2. IV ATBX, TELEMETRY, SERIAL CARDIAC EZYMES , EKG. RESUME HOME MEDS, BP AND LIPID CONTROL. I & OS, DIGOXIN LEVEL. 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[facility] (2) Chest pain Status: Acute Qualifiers: Chest pain type: intercostal pain Ischemic chest pain type: I Qualified Code(s): R07.82 - Intercostal pain (3) Syncope Status: Acute Qualifiers: Syncope type: S Encounter type: E (4) CHF (congestive heart failure) Status: Chronic Qualifiers: Congestive heart failure type: C Congestive heart failure chronicity: C (5) DJD (degenerative joint disease) of cervical spine Status: Chronic Qualifiers: Spinal osteoarthritis complication: S (6) GERD (gastroesophageal reflux disease) Status: Chronic Qualifiers: Esophagitis presence: E (7) Hypertension Status: Chronic Qualifiers: Hypertension type: H (8) Pacemaker Status: Chronic (9) Anemia Status: Acute Qualifiers: Anemia type: other cause Iron deficiency anemia type: I Vitamin B12 deficiency anemia type: V Folate deficiency anemia type: F Bone marrow failure anemia type: B Hemolytic anemia type: H Other causes of anemia: other cause, not classified Chronic kidney disease stage: C Qualified Code(s ): D64.89 - Other specified anemias Plan: TYPE AND CROSS AND TRANSFUSE
[2017-04-10] MEDS ORDERED: PATIENT'S HOME MEDICATION (Levocetirizine Dihydrochloride [Levocetirizine Dihydrochloride] PO SCH (21:00)
[2017-04-10] MEDS: SINGULAIR TAB 10 MG PO SCH (21:12)
[2017-04-11] MEDS: DUONEB 0.5 MG/3 MG NEB SCH ×6 (00:41→20:29)
[2017-04-11] MEDS ORDERED: NS 500 ML IV 500 ML IV ONE (00:42)
[2017-04-11] MEDS: M.S. CONTIN 30 MG EXTENDED RELEASE PO PRN ×3 (02:30→23:39)
[2017-04-11 06:15] LABS: BASOPHILS % (AUTO) 0.3 % (0.2-1.0); EOSINOPHILS % (AUTO) 0.3 % (0.9-2.9); HEMATOCRIT 29.1 % (42.0-54.0); HEMOGLOBIN 9.3 g/dL (13.5-18.0); LYMPHOCYTES # (AUTO) 0.5 X10^3/uL (1.3-2.9); LYMPHOCYTES % (AUTO) 8.3 % (21.0-51.0); MEAN CORPUSCULAR HEMOGLOBIN 25.3 pg (27.0-34.0); MEAN CORPUSCULAR VOLUME 79.1 fL (80.0-100.0); MEAN PLATELET VOLUME 8.5 fL (7.4-11.0); MONOCYTES # (AUTO) 0.2 x10^3/uL (0.3-0.8); MONOCYTES % (AUTO) 3.6 % (0.0-13.0); NEUTROPHILS # (AUTO) 5.2 x10^3/uL (2.2-4.8); NEUTROPHILS % (AUTO) 87.5 % (42.0-75.0); PLATELET COUNT 138 X10^3/uL (150.0-450.0); RED BLOOD COUNT 3.68 X10^6/uL (4.7-6.0); RED CELL DISTRIBUTION WIDTH 19.8 % (11.6-16.5)
[2017-04-11] MEDS: NEURONTIN CAP 300 MG PO SCH ×3 (06:17→21:03)
[2017-04-11] MEDS: SOLU-Medrol 40 MG VIAL IVP SCH ×3 (06:17→21:02)
[2017-04-11 06:40] LABS: ALBUMIN 2.9 g/dL (3.4-5.0); CALCIUM 8.7 mg/dL (8.5-10.1); CARBON DIOXIDE 30.6 mmol/L (21-32); COR CA(FOR HYPOALB) 9.6 mg/dL (8.5-10.1); CREATININE 1.57 mg/dL (0.70-1.30); TOTAL PROTEIN 6.3 g/dL (6.4-8.2)
[2017-04-11 06:45] LABS: PLATELET MORPHOLOGY COMMENT NORMAL (NORMAL)
[2017-04-11] MEDS: NORCO 10/325 TAB PO PRN ×2 (07:04→20:57)
[2017-04-11] MEDS: COREG TAB 3.125 MG PO SCH ×2 (08:44→20:59)
[2017-04-11] MEDS: LANOXIN PO SCH (08:44)
[2017-04-11] MEDS: XANAX PO PRN (08:45)
[2017-04-11] MEDS: K-DUR TAB 20 MEQ PO SCH ×2 (08:45→20:55)
[2017-04-11] MEDS: BUSPAR PO SCH ×2 (08:45→20:56)
[2017-04-11] MEDS: ZANTAC PO SCH ×2 (08:45→20:57)
[2017-04-11] MEDS: ELIQUIS PO SCH ×2 (08:45→20:56)
[2017-04-11] MEDS: LASIX PO SCH ×2 (08:46→20:56)
[2017-04-11] MEDS: NICODERM PATCH 21 MG/24 HR TD SCH (08:47)
[2017-04-11] MEDS: CORDARONE TAB 200 MG PO SCH (08:47)
[2017-04-11] MEDS: ROCEPHIN VIAL 1 GM 1 GM in NS 50 ML IV + SPIKE MINIBAG* 50 ML IV SCH (08:48)
--- NOTE | 2017-04-11 09:39 | RAD ---
HISTORY: Shortness of breath. Study: Portable chest. Comparison: Chest x-ray dated April 10, 2017. Findings: The trachea is midline. The cardiac silhouette is enlarged but unchanged. Stable appearing multilea d left chest cardiac pacemaker. Overall lung aeration appears improved. No obvious pneumothorax. T he bony thorax is unremarkable. IMPRESSION: Improving lung aeration. Reported By:
[2017-04-11 10:28] VITALS: BMI 23.0
[2017-04-11] MEDS ORDERED: FLOMAX PO ONE (19:55)
[2017-04-11] MEDS: SINGULAIR TAB 10 MG PO SCH (20:57)
[2017-04-12] MEDS: DUONEB 0.5 MG/3 MG NEB SCH ×6 (00:41→21:51)
[2017-04-12] MEDS: NORCO 10/325 TAB PO PRN ×2 (02:56→08:36)
[2017-04-12] MEDS: XANAX PO PRN ×2 (02:57→08:34)
[2017-04-12] MEDS: NEURONTIN CAP 300 MG PO SCH ×2 (05:21→13:21)
[2017-04-12] MEDS: SOLU-Medrol 40 MG VIAL IVP SCH ×2 (05:22→13:21)
[2017-04-12 06:12] LABS: BASOPHILS % (AUTO) 0.1 % (0.2-1.0); HEMATOCRIT 30.9 % (42.0-54.0); HEMOGLOBIN 9.9 g/dL (13.5-18.0); LYMPHOCYTES # (AUTO) 0.1 X10^3/uL (1.3-2.9); LYMPHOCYTES % (AUTO) 1.8 % (21.0-51.0); MEAN CORPUSCULAR HEMOGLOBIN 25.5 pg (27.0-34.0); MEAN CORPUSCULAR HGB CONC 31.9 g/dL (33.0-35.0); MEAN CORPUSCULAR VOLUME 79.7 fL (80.0-100.0); MEAN PLATELET VOLUME 8.6 fL (7.4-11.0); MONOCYTES # (AUTO) 0.3 x10^3/uL (0.3-0.8); MONOCYTES % (AUTO) 4.2 % (0.0-13.0); NEUTROPHILS # (AUTO) 7.7 x10^3/uL (2.2-4.8); NEUTROPHILS % (AUTO) 93.9 % (42.0-75.0); PLATELET COUNT 141 X10^3/uL (150.0-450.0); RED BLOOD COUNT 3.87 X10^6/uL (4.7-6.0); RED CELL DISTRIBUTION WIDTH 19.9 % (11.6-16.5); WHITE BLOOD COUNT 8.2 X10^3/uL (3.6-10.0)
[2017-04-12 06:51] LABS: ALBUMIN 2.8 g/dL (3.4-5.0); CALCIUM 8.4 mg/dL (8.5-10.1); CARBON DIOXIDE 31.7 mmol/L (21-32); COR CA(FOR HYPOALB) 9.4 mg/dL (8.5-10.1); CREATININE 1.72 mg/dL (0.70-1.30); TOTAL PROTEIN 6.2 g/dL (6.4-8.2)
[2017-04-12 06:54] LABS: PLATELET MORPHOLOGY COMMENT NORMAL (NORMAL)
[2017-04-12] MEDS: NICODERM PATCH 21 MG/24 HR TD SCH (08:32)
[2017-04-12] MEDS: ROCEPHIN VIAL 1 GM 1 GM in NS 50 ML IV + SPIKE MINIBAG* 50 ML IV SCH (08:32)
[2017-04-12] MEDS: ELIQUIS PO SCH ×2 (08:33→14:54)
[2017-04-12] MEDS: LANOXIN PO SCH (08:33)
[2017-04-12] MEDS: BUSPAR PO SCH (08:34)
[2017-04-12] MEDS: COREG TAB 3.125 MG PO SCH (08:35)
[2017-04-12] MEDS: LASIX PO SCH (08:35)
[2017-04-12] MEDS: ZANTAC PO SCH (08:35)
[2017-04-12] MEDS: CORDARONE TAB 200 MG PO SCH (08:36)
[2017-04-12] MEDS: K-DUR TAB 20 MEQ PO SCH (08:36)
[2017-04-12] MEDS ORDERED: NS 500 ML IV 500 ML IV ONE (14:10)
[2017-04-12] MEDS ORDERED: DIPRIVAN VIAL 20 ML ONE (14:56)
[2017-04-12] MEDS ORDERED: PROTONIX INJ 40 MG VIAL IVP SCH (16:00)
[2017-04-12] MEDS ORDERED: NS 1/2 1000 ML IV 1,000 ML IV ONE (17:50)
[2017-04-12] MEDS ORDERED: NS 1/2 1000 ML IV 1,000 ML IV SCH ×2 (18:00→20:00)
--- NOTE | 2017-04-12 18:04 | PCM.PROG ---
Progress Note - Subjective Subjective: CONTINUE CO WEAKNESS, SOB, WHEEZING, BACK PAIN. ppatient is a 66- year-old white male who was admitted earlier this week we had chest pain shortness of breath. Patient's cardiac enzymes and EKGs were stable patient had mild rHABDO improving with gentle hydration. Patient has a history of acid reflux and gastric ulcers. Patient continues to complain of waves of nausea and epigastric pain. Patient's anemic hemoglobin 7.2 on Sunday, patient transfused this a.m. per protocol repeat hemoglobin up to 9.3. Patient does report improved shortness of breath. Plan to keep patient nothing by mouth after midnight and had EGD per Dr. Lobato on - Past Medical Family Social History Past Med/Fam/Surg Hx: No changes since H&P Allergies: Allergies No Known Drug Allergies Allergy (Verified 04/09/17 06:33) - Review of Systems ROS: No change since H&P - Vital Signs and I&O's Vital Signs: Temperature 97.8 F Pulse Rate [Right Brachial] 83 Pulse Rate 73 Respiratory Rate 18 Blood Pressure [Left Arm] 152/71 Blood Pressure [Right Arm] 161/72 O2 Sat by Pulse Oximetry 96 Intake and Output: Intake & Output 04/10/17 04/11/17 04/12/17 04/13/17 11:59 11:59 11:59 11:59 Intake Total 790 1214 1080 720 Output Total 200 2025 1750 300 Balance 717 -005 -769 420 - Physical Exam Oriented: Normal Eyes: Normal Ear: Normal Nose: Normal Throat: Dry Respiratory: Diminished, Wheezes Cardiovascular: Irregular, Edema Auscultation: Bowel Sounds: Normal Tenderness: Normal Skin: Decreased Turgur, Ecchymosis Musculoskeletal: Leg, Back:Thoracic, Back:Lumbar Psychiatric: Anxiety Speech Pattern: Clear, Appropriate - Laboratory and Diagnostics Result Diagrams: 04/12/17 04:10 04/12/17 04:10 Labs: Laboratory WBC 8.2 X10^3/uL (3.6-10.0) 04/12/17 04:10 RBC 3.87 X10^6/uL (4.7-6.0) L 04/12/17 04:10 Hgb 9.9 g/dL (13.5-18.0) L 04/12/17 04:10 Hct 30.9 % (42.0-54.0) L 04/12/17 04:10 MCV 79.7 fL (80.0-100.0) L 04/12/17 04:10 MCH 25.5 pg (27.0-34.0) L 04/12/17 04:10 MCHC 31.9 g/dL (33.0-35.0) L 04/12/17 04:10 RDW 19.9 % (11.6-16.5) H 04/12/17 04:10 Plt Count 141 X10^3/uL (150.0-450.0) L 04/12/17 04:10 Plt Count Comment Adequate (ADEQUATE) 04/12/17 04:10 MPV 8.6 fL (7.4-11.0) 04/12/17 04:10 Neut % 93.9 % (42.0-75.0) H 04/12/17 04:10 Lymph % 1.8 % (21.0-51.0) L 04/12/17 04:10 [place] % 4.2 % (0.0-13.0) 04/12/17 04:10 Eos % 0.0 % (0.9-2.9) L 04/12/17 04:10 Baso % 0.1 % (0.2-1.0) L 04/12/17 04:10 Neut # 7.7 x10^3/uL (2.2-4.8) H 04/12/17 04:10 Lymph # 0.1 X10^3/uL (1.3-2.9) L 04/12/17 04:10 [place] # 0.3 x10^3/uL (0.3-0.8) 04/12/17 04:10 Eos # 0.0 x10^3/uL (0.0-0.2) 04/12/17 04:10 Baso # 0.0 X10^3/uL (0.0-0.1) 04/12/17 04:10 Absolute Nucleated RBC 0.2 /100WBC 04/12/17 04:10 Total Counted 100 04/12/17 04:10 Neutrophils % (Manual) 91 % (39-76) H 04/12/17 04:10 Lymphocytes % (Manual) 3 % (13-43) L 04/12/17 04:10 Monocytes % (Manual) 6 % (4-9) 04/12/17 04:10 Plt Morphology Comment Normal (NORMAL) 04/12/17 04:10 RBC Morphology Normal (NORMAL) 04/12/17 04:10 Hypochromasia 1+ A 04/10/17 06:53 Anisocytosis 1+ A 04/10/17 06:53 INR Target Range - 04/09/17 05:05 INR 1.29 (0.8-1.3) 04/09/17 05:05 PTT 52.8 SECONDS (22.9-36.5) H 04/09/17 05:05 PTT Comment - 04/09/17 05:05 Sodium 143 mmol/L (136-145) 04/12/17 04:10 Corrected Sodium 146 mmol/L (136-145) H 04/12/17 04:10 Potassium 3.3 mmol/L (3.5-5.1) L 04/12/17 04:10 Chloride 103 mmol/L (98-107) 04/12/17 04:10 Carbon Dioxide 31.7 mmol/L (21-32) 04/12/17 04:10 BUN 37 mg/dL (7-18) H 04/12/17 04:10 Creatinine 1.72 mg/dL (0.70-1.30) H 04/12/17 04:10 Est GFR (MDRD) Af Amer 52 (>60) L 04/12/17 04:10 Est GFR (MDRD) Non-Af 43 (>60) L 04/12/17 04:10 Glucose 206 mg/dL (65-99) H 04/12/17 04:10 Calcium 8.4 mg/dL (8.5-10.1) L 04/12/17 04:10 Corrected Calcium 9.4 mg/dL (8.5-10.1) 04/12/17 04:10 Magnesium 2.3 mg/dL (1.7-2.9) 04/09/17 05:05 Iron 15 ug/dL (50-175) L 04/10/17 03:10 TIBC 310 ug/dL (250-450) 04/10/17 03:10 % Saturation 4.8 % (11.0-46.0) L 04/10/17 03:10 Total Bilirubin 0.30 mg/dL (0.2-1.0) 04/12/17 04:10 AST 13 Units/L (15-37) L 04/12/17 04:10 ALT 15 Units/L (12-78) 04/12/17 04:10 Alkaline Phosphatase 82 Units/L (46-116) 04/12/17 04:10 Creatine Kinase 465 Units/L (39-308) H 04/09/17 21:20 CK-MB (CK-2) 3.1 ng/mL (0-4.0) 04/09/17 21:20 CK/CKMB % Calc 0.7 % (<4) 04/09/17 21:20 Troponin I 0.06 ng/mL (0-1.5) 04/09/17 21:20 B-Natriuretic Peptide 2020 pg/mL (0-79) H* 04/09/17 05:05 Total Protein 6.2 g/dL (6.4-8.2) L 04/12/17 04:10 Albumin 2.8 g/dL (3.4-5.0) L 04/12/17 04:10 Globulin 3.4 g/dL (2.5-4.5) 04/12/17 04:10 Albumin/Globulin Ratio 0.8 Ratio (1.1-2.1) L 04/12/17 04:10 Triglycerides 51 mg/dL (0-150) 04/10/17 03:10 Cholesterol 133 mg/dL (0-200) 04/10/17 03:10 LDL Cholesterol, Calc 71 mg/dL (0-100) 04/10/17 03:10 HDL Cholesterol 52 mg/dL (40-60) 04/10/17 03:10 Cholesterol/HDL Ratio 2.6 (0.0-5.0) 04/10/17 03:10 Free T4 0.73 ng/dL (0.76-1.46) L 04/10/17 03:10 TSH 3rd Generation 0.303 uIU/mL (0.358-3.74) L 04/10/17 03:10 Specimen Type Clean catch urine 04/09/17 06:00 Urine Color Yellow (YELLOW) 04/09/17 06:00 Urine Appearance Clear (CLEAR) 04/09/17 06:00 Urine pH 5.0 (5.0 - 8.0) 04/09/17 06:00 Ur Specific [place] 1.010 (1.000-1.030) 04/09/17 06:00 Urine Protein Negative (NEGATIVE) 04/09/17 06:00 Urine Glucose (UA) Negative (NEGATIVE) 04/09/17 06:00 Urine Ketones Negative (NEGATIVE) 04/09/17 06:00 Urine Occult Blood Negative (NEGATIVE) 04/09/17 06:00 Urine Nitrite Negative (NEGATIVE) 04/09/17 06:00 Urine Bilirubin Negative (NEGATIVE) 04/09/17 06:00 Urine Urobilinogen Normal (NORMAL) 04/09/17 06:00 Ur Leukocyte Esterase Negative (NEGATIVE) 04/09/17 06:00 Urine RBC None seen /HPF (NEGATIVE) 04/09/17 06:00 Urine WBC None seen /HPF (NEGATIVE) 04/09/17 06:00 Ur Squamous Epith Cells Rare /HPF (NEGATIVE) 04/09/17 06:00 Urine Bacteria Negative /HPF (NEGATIVE) 04/09/17 06:00 Ur Culture Indicated? No/not indicated 04/09/17 06:00 Stool Description 100g hard formed brn 04/12/17 03:34 Stl Occult Blood (IFOB) Positive (NEGATIVE) A 04/12/17 03:34 Digoxin 0.95 ng/mL (0.9-2) 04/09/17 17:36 Urine Opiates Screen Negative (NEG=<300) 04/09/17 14:10 Urine Methadone Screen Negative (NEG=<300) 04/09/17 14:10 Ur Barbiturates Screen Negative (NEG=<200) 04/09/17 14:10 Ur Phencyclidine Scrn Negative (NEG=<25) 04/09/17 14:10 Ur Amphetamines Screen Negative (NEG=<1000) 04/09/17 14:10 U Benzodiazepines Scrn Negative (NEG=<200) 04/09/17 14:10 Urine Cocaine Screen Negative (NEG=<300) 04/09/17 14:10 U Marijuana (THC) Screen Negative (NEG=<50) 04/09/17 14:10 Ethyl Alcohol mg/dL < 3 mg/dL (0-19.9) 04/09/17 13:53 Blood Type O POSITIVE 04/10/17 15:50 Antibody Screen Negative 07/18/17 15:50 Crossmatch See Detail 04/10/17 15:50 - Plan (1) COPD exacerbation Status: Acute Plan: RESP THERAPY, SUPPLEMENTAL O2. IV ATBX, TELEMETRY, SERIAL CARDIAC EZYMES , EKG'S STABLE. RESUME HOME MEDS, BP AND LIPID CONTROL. I & OS, DIGOXIN LEVEL. 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 Qualifiers: Spinal osteoarthritis complication: S (6) GERD (gastroesophageal reflux disease) Status: Chronic Qualifiers: Esophagitis presence: E (7) Hypertension Status: Chronic Qualifiers: Hypertension type: H (8) Pacemaker Status: Chronic (9) Anemia Status: Acute Qualifiers: Anemia type: other cause Iron deficiency anemia type: I Vitamin B12 deficiency anemia type: V Folate deficiency anemia type: F Bone marrow failure anemia type: B Hemolytic anemia type: H Other causes of anemia: other cause, not classified Chronic kidney disease stage: C Qualified Code(s ): D64.89 - Other specified anemias Plan: TYPE AND CROSS AND TRANSFUSE (10) GERD (gastroesophageal reflux disease) Status: Acute Qualifiers: Esophagitis presence: E Plan: WITH ANEMIA AND HALF-WAY NSAID AND ANTI COAG THERAPY. WILL KEEP NPO, FOR EGD
--- NOTE | 2017-04-12 18:05 | PCM.PROG ---
Progress Note - Progress Note for Day of Date: 04/12/17 - Subjective Subjective: patient is a 66-year-old white male who was admitted earlier this week we had chest pain shortness of breath. Patient's cardiac enzymes and EKGs were stable patient had mild rHABDO improving with gentle hydration. Patient has a history of acid reflux and gastric ulcers. Patient continues to complain of waves of nausea and epigastric pain. Patient's anemic hemoglobin 7.2 on Sunday, patient transfused this a.m. per protocol repeat hemoglobin up to 9.3. Patient does report improved shortness of breath. Plan to keep patient nothing by mouth after midnight and had EGD per Dr. Lobato this am - Past Medical Family Social History Past Med/Fam/Surg Hx: No changes since H&P Allergies: Allergies No Known Drug Allergies Allergy (Verified 04/09/17 06:33) - Review of Systems ROS: No change since H&P - Vital Signs and I&O's Vital Signs: Temperature 97.8 F Pulse Rate [Right Brachial] 83 Pulse Rate 73 Respiratory Rate 18 Blood Pressure [Left Arm] 152/71 Blood Pressure [Right Arm] 161/72 O2 Sat by Pulse Oximetry 96 Intake and Output: Intake & Output 04/10/17 04/11/17 04/12/17 04/13/17 11:59 11:59 11:59 11:59 Intake Total 790 1214 1080 720 Output Total 200 2025 1750 300 Balance 447 -248 -659 420 - Physical Exam Oriented: Normal Eyes: Normal Ear: Normal Nose: Normal Throat: Dry Respiratory: Diminished, Wheezes Cardiovascular: Irregular, Edema Auscultation: Bowel Sounds: Normal Tenderness: Normal Skin: Decreased Turgur, Ecchymosis Musculoskeletal: Leg, Back:Thoracic, Back:Lumbar Psychiatric: Anxiety Speech Pattern: Clear, Appropriate - Laboratory and Diagnostics Result Diagrams: 04/12/17 04:10 04/12/17 04:10 Labs: Laboratory WBC 8.2 X10^3/uL (3.6-10.0) 04/12/17 04:10 RBC 3.87 X10^6/uL (4.7-6.0) L 04/12/17 04:10 Hgb 9.9 g/dL (13.5-18.0) L 04/12/17 04:10 Hct 30.9 % (42.0-54.0) L 04/12/17 04:10 MCV 79.7 fL (80.0-100.0) L 04/12/17 04:10 MCH 25.5 pg (27.0-34.0) L 04/12/17 04:10 MCHC 31.9 g/dL (33.0-35.0) L 04/12/17 04:10 RDW 19.9 % (11.6-16.5) H 04/12/17 04:10 Plt Count 141 X10^3/uL (150.0-450.0) L 04/12/17 04:10 Plt Count Comment Adequate (ADEQUATE) 04/12/17 04:10 MPV 8.6 fL (7.4-11.0) 04/12/17 04:10 Neut % 93.9 % (42.0-75.0) H 04/12/17 04:10 Lymph % 1.8 % (21.0-51.0) L 04/12/17 04:10 [place] % 4.2 % (0.0-13.0) 04/12/17 04:10 Eos % 0.0 % (0.9-2.9) L 04/12/17 04:10 Baso % 0.1 % (0.2-1.0) L 04/12/17 04:10 Neut # 7.7 x10^3/uL (2.2-4.8) H 04/12/17 04:10 Lymph # 0.1 X10^3/uL (1.3-2.9) L 04/12/17 04:10 [place] # 0.3 x10^3/uL (0.3-0.8) 04/12/17 04:10 Eos # 0.0 x10^3/uL (0.0-0.2) 04/12/17 04:10 Baso # 0.0 X10^3/uL (0.0-0.1) 04/12/17 04:10 Absolute Nucleated RBC 0.2 /100WBC 04/12/17 04:10 Total Counted 100 04/12/17 04:10 Neutrophils % (Manual) 91 % (39-76) H 04/12/17 04:10 Lymphocytes % (Manual) 3 % (13-43) L 04/12/17 04:10 Monocytes % (Manual) 6 % (4-9) 04/12/17 04:10 Plt Morphology Comment Normal (NORMAL) 04/12/17 04:10 RBC Morphology Normal (NORMAL) 04/12/17 04:10 Hypochromasia 1+ A 04/10/17 06:53 Anisocytosis 1+ A 04/10/17 06:53 INR Target Range - 04/09/17 05:05 INR 1.29 (0.8-1.3) 04/09/17 05:05 PTT 52.8 SECONDS (22.9-36.5) H 04/09/17 05:05 PTT Comment - 04/09/17 05:05 Sodium 143 mmol/L (136-145) 04/12/17 04:10 Corrected Sodium 146 mmol/L (136-145) H 04/12/17 04:10 Potassium 3.3 mmol/L (3.5-5.1) L 04/12/17 04:10 Chloride 103 mmol/L (98-107) 04/12/17 04:10 Carbon Dioxide 31.7 mmol/L (21-32) 04/12/17 04:10 BUN 37 mg/dL (7-18) H 04/12/17 04:10 Creatinine 1.72 mg/dL (0.70-1.30) H 04/12/17 04:10 Est GFR (MDRD) Af Amer 52 (>60) L 04/12/17 04:10 Est GFR (MDRD) Non-Af 43 (>60) L 04/12/17 04:10 Glucose 206 mg/dL (65-99) H 04/12/17 04:10 Calcium 8.4 mg/dL (8.5-10.1) L 04/12/17 04:10 Corrected Calcium 9.4 mg/dL (8.5-10.1) 04/12/17 04:10 Magnesium 2.3 mg/dL (1.7-2.9) 04/09/17 05:05 Iron 15 ug/dL (50-175) L 04/10/17 03:10 TIBC 310 ug/dL (250-450) 04/10/17 03:10 % Saturation 4.8 % (11.0-46.0) L 04/10/17 03:10 Total Bilirubin 0.30 mg/dL (0.2-1.0) 04/12/17 04:10 AST 13 Units/L (15-37) L 04/12/17 04:10 ALT 15 Units/L (12-78) 04/12/17 04:10 Alkaline Phosphatase 82 Units/L (46-116) 04/12/17 04:10 Creatine Kinase 465 Units/L (39-308) H 04/09/17 21:20 CK-MB (CK-2) 3.1 ng/mL (0-4.0) 04/09/17 21:20 CK/CKMB % Calc 0.7 % (<4) 04/09/17 21:20 Troponin I 0.06 ng/mL (0-1.5) 04/09/17 21:20 B-Natriuretic Peptide 2020 pg/mL (0-79) H* 04/09/17 05:05 Total Protein 6.2 g/dL (6.4-8.2) L 04/12/17 04:10 Albumin 2.8 g/dL (3.4-5.0) L 04/12/17 04:10 Globulin 3.4 g/dL (2.5-4.5) 04/12/17 04:10 Albumin/Globulin Ratio 0.8 Ratio (1.1-2.1) L 04/12/17 04:10 Triglycerides 51 mg/dL (0-150) 04/10/17 03:10 Cholesterol 133 mg/dL (0-200) 04/10/17 03:10 LDL Cholesterol, Calc 71 mg/dL (0-100) 04/10/17 03:10 HDL Cholesterol 52 mg/dL (40-60) 04/10/17 03:10 Cholesterol/HDL Ratio 2.6 (0.0-5.0) 04/10/17 03:10 Free T4 0.73 ng/dL (0.76-1.46) L 04/10/17 03:10 TSH 3rd Generation 0.303 uIU/mL (0.358-3.74) L 04/10/17 03:10 Specimen Type Clean catch urine 04/09/17 06:00 Urine Color Yellow (YELLOW) 04/09/17 06:00 Urine Appearance Clear (CLEAR) 04/09/17 06:00 Urine pH 5.0 (5.0 - 8.0) 04/09/17 06:00 Ur Specific [place] 1.010 (1.000-1.030) 04/09/17 06:00 Urine Protein Negative (NEGATIVE) 04/09/17 06:00 Urine Glucose (UA) Negative (NEGATIVE) 04/09/17 06:00 Urine Ketones Negative (NEGATIVE) 04/09/17 06:00 Urine Occult Blood Negative (NEGATIVE) 04/09/17 06:00 Urine Nitrite Negative (NEGATIVE) 04/09/17 06:00 Urine Bilirubin Negative (NEGATIVE) 04/09/17 06:00 Urine Urobilinogen Normal (NORMAL) 04/09/17 06:00 Ur Leukocyte Esterase Negative (NEGATIVE) 04/09/17 06:00 Urine RBC None seen /HPF (NEGATIVE) 04/09/17 06:00 Urine WBC None seen /HPF (NEGATIVE) 04/09/17 06:00 Ur Squamous Epith Cells Rare /HPF (NEGATIVE) 04/09/17 06:00 Urine Bacteria Negative /HPF (NEGATIVE) 04/09/17 06:00 Ur Culture Indicated? No/not indicated 04/09/17 06:00 Stool Description 100g hard formed brn 04/12/17 03:34 Stl Occult Blood (IFOB) Positive (NEGATIVE) A 04/12/17 03:34 Digoxin 0.95 ng/mL (0.9-2) 04/09/17 17:36 Urine Opiates Screen Negative (NEG=<300) 04/09/17 14:10 Urine Methadone Screen Negative (NEG=<300) 04/09/17 14:10 Ur Barbiturates Screen Negative (NEG=<200) 04/09/17 14:10 Ur Phencyclidine Scrn Negative (NEG=<25) 04/09/17 14:10 Ur Amphetamines Screen Negative (NEG=<1000) 04/09/17 14:10 U Benzodiazepines Scrn Negative (NEG=<200) 04/09/17 14:10 Urine Cocaine Screen Negative (NEG=<300) 04/09/17 14:10 U Marijuana (THC) Screen Negative (NEG=<50) 04/09/17 14:10 Ethyl Alcohol mg/dL < 3 mg/dL (0-19.9) 04/09/17 13:53 Blood Type O POSITIVE 07/18/17 15:50 Antibody Screen Negative 04/10/17 15:50 Crossmatch See Detail 04/10/17 15:50 - Plan (1) COPD exacerbation Status: Acute Plan: RESP THERAPY, SUPPLEMENTAL O2. IV ATBX, TELEMETRY, SERIAL CARDIAC EZYMES , EKG'S STABLE. RESUME HOME MEDS, BP AND LIPID CONTROL. I & OS, DIGOXIN LEVEL. 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 Qualifiers: Spinal osteoarthritis complication: S (6) GERD (gastroesophageal reflux disease) Status: Chronic Qualifiers: Esophagitis presence: E (7) Hypertension Status: Chronic Qualifiers: Hypertension type: H (8) Pacemaker Status: Chronic (9) Anemia Status: Acute Qualifiers: Anemia type: other cause Iron deficiency anemia type: I Vitamin B12 deficiency anemia type: V Folate deficiency anemia type: F Bone marrow failure anemia type: B Hemolytic anemia type: H Other causes of anemia: other cause, not classified Chronic kidney disease stage: C Qualified Code(s ): D64.89 - Other specified anemias Plan: TYPE AND CROSS AND TRANSFUSE (10) GERD (gastroesophageal reflux disease) Status: Acute Qualifiers: Esophagitis presence: E Plan: s/p transfusion, hgb this am 9.9. WITH ANEMIA AND WAX PATTERN COATER NSAID AND ANTI COAG THERAPY. WILL KEEP NPO, FOR EGD
[2017-04-12 18:17] LABS: HEMATOCRIT 32.8 % (42.0-54.0); HEMOGLOBIN 10.4 g/dL (13.5-18.0)
[2017-04-12] MEDS ORDERED: NITROSTAT SL PRN ×2 (19:18→22:03)
[2017-04-12] MEDS ORDERED: MORPHINE SULFATE INJ 2 MG IVP PRN ×2 (19:19→22:03)
[2017-04-12 20:04] LABS: ABG BASE EXCESS 13.5 mmol/L (-2.0-2.0)
[2017-04-12 20:06] LABS: ABG ALLEN TEST POS; ABG HCO3 39.3 mmol/L (22-26)
[2017-04-12 20:13] LABS: CKMB % 3.6 % (<4); CREATINE KINASE MB 1.3 ng/mL (0-4.0); TROPONIN I 0.05 ng/mL (0-1.5)
[2017-04-12] MEDS ORDERED: NS 250 ML IV 250 ML IV ONE ×2 (20:43→22:03)
--- NOTE | 2017-04-12 20:49 | RAD ---
HISTORY: Chest pain Study: Single view of the chest. Comparison: 04/11/2017 Findings: No significant change from prior. Bibasilar airspace opacities remain. Osseous structures demonstrat e no acute abnormality. IMPRESSION: 1. No significant change in appearance of bibasilar airspace opacities Reported By:
[2017-04-12] MEDS ORDERED: LANOXIN INJ IVP ONE ×2 (20:52→22:03)
[2017-04-12] MEDS ORDERED: LANOXIN INJ IVP SCH (21:00)
[2017-04-12] MEDS ORDERED: FLOMAX PO SCH (21:00)
[2017-04-12] MEDS ORDERED: TYLENOL #3 TAB (W/CODEINE) PO PRN (22:03)
[2017-04-12] MEDS ORDERED: NORCO 10/325 TAB PO PRN (22:03)
[2017-04-12] MEDS ORDERED: M.S. CONTIN 30 MG EXTENDED RELEASE PO PRN (22:03)
[2017-04-12] MEDS ORDERED: XANAX PO PRN (22:03)
[2017-04-12] MEDS ORDERED: AMBIEN PO PRN (22:03)
[2017-04-12] MEDS ORDERED: XOPENEX 1.25 MG/3 ML NEBULE NEB PRN (22:54)
[2017-04-12] MEDS ORDERED: NEXTERONE IV 150 MG PREMIX* 100 ML IV ONE ×2 (22:58→23:10)
[2017-04-12] MEDS ORDERED: NEXTERONE IV 360 MG PREMIX* 200 ML IV PRN (23:00)
[2017-04-12] MEDS ORDERED: COREG TAB 3.125 MG PO ONE (23:21)
[2017-04-13] MEDS: ATROVENT NEB TX 0.02% NEB SCH ×3 (00:45→12:13)
[2017-04-13] MEDS: XOPENEX 1.25 MG/3 ML NEBULE NEB SCH ×3 (00:45→12:13)
[2017-04-13] MEDS ORDERED: DUONEB 0.5 MG/3 MG NEB SCH (01:00)
[2017-04-13 01:45] LABS: CKMB % 8.2 % (<4); CREATINE KINASE MB 2.7 ng/mL (0-4.0); TROPONIN I 0.3 ng/mL (0-1.5)
[2017-04-13] MEDS ORDERED: LANOXIN INJ IVP ONE (03:00)
[2017-04-13] MEDS: NEURONTIN CAP 300 MG PO SCH ×2 (05:05→13:48)
[2017-04-13 06:10] LABS: BASOPHILS % (AUTO) 0.1 % (0.2-1.0); HEMATOCRIT 31.9 % (42.0-54.0); HEMOGLOBIN 10.1 g/dL (13.5-18.0); LYMPHOCYTES # (AUTO) 0.6 X10^3/uL (1.3-2.9); LYMPHOCYTES % (AUTO) 7.7 % (21.0-51.0); MEAN CORPUSCULAR HEMOGLOBIN 25.3 pg (27.0-34.0); MEAN CORPUSCULAR HGB CONC 31.8 g/dL (33.0-35.0); MEAN CORPUSCULAR VOLUME 79.5 fL (80.0-100.0); MEAN PLATELET VOLUME 8.8 fL (7.4-11.0); MONOCYTES # (AUTO) 0.5 x10^3/uL (0.3-0.8); MONOCYTES % (AUTO) 5.6 % (0.0-13.0); NEUTROPHILS # (AUTO) 7.2 x10^3/uL (2.2-4.8); NEUTROPHILS % (AUTO) 86.6 % (42.0-75.0); PLATELET COUNT 135 X10^3/uL (150.0-450.0); RED BLOOD COUNT 4.01 X10^6/uL (4.7-6.0); RED CELL DISTRIBUTION WIDTH 19.7 % (11.6-16.5); WHITE BLOOD COUNT 8.3 X10^3/uL (3.6-10.0)
[2017-04-13 06:24] LABS: ALANINE AMINOTRANSFERASE 15 Units/L (12-78); ALBUMIN 2.6 g/dL (3.4-5.0); ALKALINE PHOSPHATASE 65 Units/L (46-116); ASPARTATE AMINO TRANSFERASE 14 Units/L (15-37); BLOOD UREA NITROGEN 36 mg/dL (7-18); CALCIUM 8.1 mg/dL (8.5-10.1); CARBON DIOXIDE 38.5 mmol/L (21-32); CHLORIDE 99 mmol/L (98-107); CKMB % 10.3 % (<4); COR CA(FOR HYPOALB) 9.2 mg/dL (8.5-10.1); COR NA(FOR HYPERGLY) 141 mmol/L (136-145); CREATINE KINASE 39 Units/L (39-308); CREATININE 1.43 mg/dL (0.70-1.30); GLUCOSE 128 mg/dL (65-99); SODIUM 140 mmol/L (136-145); TOTAL PROTEIN 5.7 g/dL (6.4-8.2); TROPONIN I 0.57 ng/mL (0-1.5); eGFR BLACK RACES > 60 (>60); eGFR NON BLACK RACES 53 (>60)
[2017-04-13 06:44] LABS: HYPOCHROMASIA SLIGHT; PLATELET MORPHOLOGY COMMENT NORMAL (NORMAL)
[2017-04-13] MEDS ORDERED: NS 1/2 1000 ML IV 1,000 ML IV SCH ×4 (07:00→20:00)
[2017-04-13] MEDS ORDERED: ROCEPHIN VIAL 1 GM 1 GM in NS 50 ML IV + SPIKE MINIBAG* 50 ML IV SCH (09:00)
[2017-04-13] MEDS ORDERED: NICODERM PATCH 21 MG/24 HR TD SCH (09:00)
[2017-04-13] MEDS ORDERED: LANOXIN PO SCH (09:00)
[2017-04-13] MEDS ORDERED: CORDARONE TAB 200 MG PO SCH ×2 (09:00→17:00)
[2017-04-13] MEDS ORDERED: ZANTAC PO SCH (09:00)
[2017-04-13] MEDS ORDERED: COREG TAB 3.125 MG PO SCH (09:00)
[2017-04-13] MEDS ORDERED: K-DUR TAB 20 MEQ PO SCH (09:00)
[2017-04-13] MEDS ORDERED: ELIQUIS PO SCH (09:00)
[2017-04-13] MEDS ORDERED: PROTONIX INJ 40 MG VIAL IVP SCH (09:00)
[2017-04-13] MEDS ORDERED: LASIX PO SCH (09:00)
[2017-04-13] MEDS ORDERED: BUSPAR PO SCH (09:00)
[2017-04-13 14:40] LABS: CKMB % 7.7 % (<4); TROPONIN I 0.51 ng/mL (0-1.5)
[2017-04-13 14:46] LABS: CREATINE KINASE MB 4.7 ng/mL (0-4.0)
[2017-04-13 15:46] VITALS: BP 157/56
[2017-04-13] MEDS ORDERED: SINGULAIR TAB 10 MG PO SCH (21:00)
[2017-04-13] MEDS ORDERED: FLOMAX PO SCH (21:00)
[2017-04-13] MEDS ORDERED: COREG TAB 3.125 MG PO ONE (23:01)
--- NOTE | 2017-04-16 19:10 | PCM.DCPLAN ---
Discharge Summary - Admission Date Date of Admission: 04/09/17 - Discharge Date Discharge Date: 04/13/17 - Admission Diagnoses (1) COPD exacerbation Status: Acute (2) Chest pain Status: Acute (3) Syncope Status: Acute (4) CHF (congestive heart failure) Status: Chronic (5) DJD (degenerative joint disease) of cervical spine Status: Chronic (6) GERD (gastroesophageal reflux disease) Status: Chronic (7) Hypertension Status: Chronic (8) Pacemaker Status: Chronic (9) Anemia Status: Acute (10) GERD (gastroesophageal reflux disease) Status: Acute - Discharge Diagnoses Discharge Diagnosis: same as admission - Hospital Course Vital Signs: Temperature 98.2 F Pulse Rate [Right Brachial] 74 Pulse Rate 70 Respiratory Rate 22 Blood Pressure [Left Arm] 157/56 Blood Pressure [Right Arm] 147/53 O2 Sat by Pulse Oximetry 100 Latest Lab Results: Laboratory Last Values WBC 8.3 X10^3/uL (3.6-10.0) 04/13/17 04:55 RBC 4.01 X10^6/uL (4.7-6.0) L 04/13/17 04:55 Hgb 10.1 g/dL (13.5-18.0) L 04/13/17 04:55 Hct 31.9 % (42.0-54.0) L 04/13/17 04:55 MCV 79.5 fL (80.0-100.0) L 04/13/17 04:55 MCH 25.3 pg (27.0-34.0) L 04/13/17 04:55 MCHC 31.8 g/dL (33.0-35.0) L 04/13/17 04:55 RDW 19.7 % (11.6-16.5) H 04/13/17 04:55 Plt Count 135 X10^3/uL (150.0-450.0) L 04/13/17 04:55 Plt Count Comment Adequate (ADEQUATE) 04/13/17 04:55 MPV 8.8 fL (7.4-11.0) 04/13/17 04:55 Neut % 86.6 % (42.0-75.0) H 04/13/17 04:55 Lymph % 7.7 % (21.0-51.0) L 04/13/17 04:55 [place] % 5.6 % (0.0-13.0) 04/13/17 04:55 Eos % 0.0 % (0.9-2.9) L 04/13/17 04:55 Baso % 0.1 % (0.2-1.0) L 04/13/17 04:55 Neut # 7.2 x10^3/uL (2.2-4.8) H 04/13/17 04:55 Lymph # 0.6 X10^3/uL (1.3-2.9) L 04/13/17 04:55 [place] # 0.5 x10^3/uL (0.3-0.8) 04/13/17 04:55 Eos # 0.0 x10^3/uL (0.0-0.2) 04/13/17 04:55 Baso # 0.0 X10^3/uL (0.0-0.1) 04/13/17 04:55 Absolute Nucleated RBC 0.1 /100WBC 04/13/17 04:55 Total Counted 100 04/13/17 04:55 Neutrophils % (Manual) 93 % (39-76) H 04/13/17 04:55 Lymphocytes % (Manual) 6 % (13-43) L 04/13/17 04:55 Monocytes % (Manual) 1 % (4-9) L 04/13/17 04:55 Plt Morphology Comment Normal (NORMAL) 04/13/17 04:55 RBC Morphology Abnormal (NORMAL) 04/13/17 04:55 Hypochromasia Slight A 04/13/17 04:55 Anisocytosis 1+ A 04/10/17 06:53 INR Target Range - 04/09/17 05:05 INR 1.29 (0.8-1.3) 04/09/17 05:05 PTT 52.8 SECONDS (22.9-36.5) H 04/09/17 05:05 PTT Comment - 04/09/17 05:05 Sample Site Lra 04/12/17 19:58 ABG pH 7.470 (7.35-7.45) H 04/12/17 19:58 ABG pCO2 54.0 mmHg (35.0-45.0) H* 04/12/17 19:58 ABG pO2 73.0 mmHg (80.0-100.0) L 04/12/17 19:58 ABG HCO3 39.3 mmol/L (22-26) H* 04/12/17 19:58 ABG O2 Saturation 95.0 % (90-100) 04/12/17 19:58 ABG Base Excess 13.5 mmol/L (-2.0-2.0) H 04/12/17 19:58 Brad Test Pos 04/12/17 19:58 A-a Gradient 88.0 mmHg 04/12/17 19:58 FiO2 32.000 04/12/17 19:58 Blood Gas Comments Adeola well ah 04/12/17 19:58 Sodium 140 mmol/L (136-145) 04/13/17 04:55 Corrected Sodium 141 mmol/L (136-145) 04/13/17 04:55 Potassium 3.9 mmol/L (3.5-5.1) 04/13/17 04:55 Chloride 99 mmol/L (98-107) 04/13/17 04:55 Carbon Dioxide 38.5 mmol/L (21-32) H 04/13/17 04:55 BUN 36 mg/dL (7-18) H 04/13/17 04:55 Creatinine 1.43 mg/dL (0.70-1.30) H 04/13/17 04:55 Est GFR (MDRD) Af Amer > 60 (>60) 04/13/17 04:55 Est GFR (MDRD) Non-Af 53 (>60) L 04/13/17 04:55 Glucose 128 mg/dL (65-99) H 04/13/17 04:55 Calcium 8.1 mg/dL (8.5-10.1) L 04/13/17 04:55 Corrected Calcium 9.2 mg/dL (8.5-10.1) 04/13/17 04:55 Magnesium 2.3 mg/dL (1.7-2.9) 04/09/17 05:05 Iron 15 ug/dL (50-175) L 04/10/17 03:10 TIBC 310 ug/dL (250-450) 04/10/17 03:10 % Saturation 4.8 % (11.0-46.0) L 04/10/17 03:10 Total Bilirubin 0.20 mg/dL (0.2-1.0) 04/13/17 04:55 AST 14 Units/L (15-37) L 04/13/17 04:55 ALT 15 Units/L (12-78) 04/13/17 04:55 Alkaline Phosphatase 65 Units/L (46-116) 04/13/17 04:55 Creatine Kinase 61 Units/L (39-308) 04/13/17 13:40 CK-MB (CK-2) 4.7 ng/mL (0-4.0) H* 04/13/17 13:40 CK/CKMB % Calc 7.7 % (<4) 04/13/17 13:40 Troponin I 0.51 ng/mL (0-1.5) 04/13/17 13:40 B-Natriuretic Peptide 2020 pg/mL (0-79) H* 04/09/17 05:05 Total Protein 5.7 g/dL (6.4-8.2) L 04/13/17 04:55 Albumin 2.6 g/dL (3.4-5.0) L 04/13/17 04:55 Globulin 3.1 g/dL (2.5-4.5) 04/13/17 04:55 Albumin/Globulin Ratio 0.8 Ratio (1.1-2.1) L 04/13/17 04:55 Triglycerides 51 mg/dL (0-150) 04/10/17 03:10 Cholesterol 133 mg/dL (0-200) 04/10/17 03:10 LDL Cholesterol, Calc 71 mg/dL (0-100) 04/10/17 03:10 HDL Cholesterol 52 mg/dL (40-60) 04/10/17 03:10 Cholesterol/HDL Ratio 2.6 (0.0-5.0) 04/10/17 03:10 Free T4 0.73 ng/dL (0.76-1.46) L 04/10/17 03:10 TSH 3rd Generation 0.303 uIU/mL (0.358-3.74) L 04/10/17 03:10 Specimen Type Clean catch urine 04/09/17 06:00 Urine Color Yellow (YELLOW) 04/09/17 06:00 Urine Appearance Clear (CLEAR) 04/09/17 06:00 Urine pH 5.0 (5.0 - 8.0) 04/09/17 06:00 Ur Specific [place] 1.010 (1.000-1.030) 04/09/17 06:00 Urine Protein Negative (NEGATIVE) 04/09/17 06:00 Urine Glucose (UA) Negative (NEGATIVE) 04/09/17 06:00 Urine Ketones Negative (NEGATIVE) 04/09/17 06:00 Urine Occult Blood Negative (NEGATIVE) 04/09/17 06:00 Urine Nitrite Negative (NEGATIVE) 04/09/17 06:00 Urine Bilirubin Negative (NEGATIVE) 04/09/17 06:00 Urine Urobilinogen Normal (NORMAL) 04/09/17 06:00 Ur Leukocyte Esterase Negative (NEGATIVE) 04/09/17 06:00 Urine RBC None seen /HPF (NEGATIVE) 04/09/17 06:00 Urine WBC None seen /HPF (NEGATIVE) 04/09/17 06:00 Ur Squamous Epith Cells Rare /HPF (NEGATIVE) 04/09/17 06:00 Urine Bacteria Negative /HPF (NEGATIVE) 04/09/17 06:00 Ur Culture Indicated? No/not indicated 04/09/17 06:00 Stool Description 100g hard formed brn 04/12/17 03:34 Stl Occult Blood (IFOB) Positive (NEGATIVE) A 04/12/17 03:34 Digoxin 1.05 ng/mL (0.9-2) 04/12/17 20:00 Urine Opiates Screen Negative (NEG=<300) 04/09/17 14:10 Urine Methadone Screen Negative (NEG=<300) 04/09/17 14:10 Ur Barbiturates Screen Negative (NEG=<200) 04/09/17 14:10 Ur Phencyclidine Scrn Negative (NEG=<25) 04/09/17 14:10 Ur Amphetamines Screen Negative (NEG=<1000) 04/09/17 14:10 U Benzodiazepines Scrn Negative (NEG=<200) 04/09/17 14:10 Urine Cocaine Screen Negative (NEG=<300) 04/09/17 14:10 U Marijuana (THC) Screen Negative (NEG=<50) 04/09/17 14:10 Ethyl Alcohol mg/dL < 3 mg/dL (0-19.9) 04/09/17 13:53 Blood Type O POSITIVE 04/10/17 15:50 Antibody Screen Negative 04/10/17 15:50 Crossmatch See Detail 04/10/17 15:50 Hospital Course: Mister Pitts is a 66-year-old white male who was admitted on 04/09/17 after presenting to the emergency room with diagnosis of CHF pulmonary edema and bronchitis symptoms. Patient reported a near syncopal episode at home. Patient was admitted with serial cardiac enzymes and EKGs which were in normal range for the patient. He does have a long history of hypertension, copd, chf, adn afib and a history of coronary artery bypass. Patient is under the care of Dr. Bowers at [facility] in [place]. Patient was noted to be anemic on this visit he was transfused 2 units of packed red blood cells. On day of discharge patient's hemoglobin was stable at 10.1. Patient did have improved increased shortness of breath. Patient was set up for an EGD per Dr. Lobato to rule out upper GI bleed due to epigastric-type chest pain as well as anemia. Patient has been on NSAIDs for years because of arthritis as well as long- term anticoagulant medication for A. fib. Post EGD patient was in A. fib with uncontrolled rate. He was previously on amiodarone at home and was moved to ICU and started on amiodarone drip rate was controlled sinus rhythm in the 70s this morning on discharge. Patient EGD did reveal large gastric ulcer and biopsies were taken which were able be reviewed with patient all on his hospital follow-up visit. Due to patient's flare of a CF as well as complaints of chest pain and recent syncopal episode patient and family wished for transfer to [facility] to his care asst. Patient was transferred from the afternoon to [facility] to the care of Dr. Elissa Orellana. Patient's condition was stable and improved on discharge - Discharge Plan Disposition: XF [facility]-TRM HOSP Condition: Stable - Follow ups/Referrals Follow ups/Referrals: DAAYMI JUSTIN [Primary Care Provider] - 3 days - Instructions
== END 2017-04-13 16:12 | disposition short-term general hospital (02) | DRG 190 ==
LOC: ER 04:42 → OBS 07:25 → MED/SURG 15:10 → ICU 04-12 20:05 → OBSVTOIN 04-12 20:55
PROVIDERS: ADMIT Internal Medicine; ATTEND Internal Medicine
PROC: 30233N1 Transfusion of Nonautologous Red Blood Cells into Peripheral Vein, Percutaneous Approach (ICD-10-PCS; 2017-04-10)
PROC: 30233N1 Transfusion of Nonautologous Red Blood Cells into Peripheral Vein, Percutaneous Approach (ICD-10-PCS; 2017-04-11)
PROC: 0DJ08ZZ Inspection of Upper Intestinal Tract, Via Natural or Artificial Opening Endoscopic (ICD-10-PCS; principal; 2017-04-12 17:45)
DX: J44.1 Chronic obstructive pulmonary disease with (acute) exacerbation (principal); J20.8 Acute bronchitis due to other specified organisms; R55 Syncope and collapse; I50.43 Acute on chronic combined systolic (congestive) and diastolic (congestive) heart failure; D64.89 Other specified anemias; K20.8 Other esophagitis; K44.9 Diaphragmatic hernia without obstruction or gangrene; K29.00 Acute gastritis without bleeding; K29.80 Duodenitis without bleeding; R94.31 Abnormal electrocardiogram [ECG] [EKG]; R06.02 Shortness of breath; R60.0 Localized edema; R07.82 Intercostal pain; R53.1 Weakness; I25.10 Atherosclerotic heart disease of native coronary artery without angina pectoris; F32.89 Other specified depressive episodes; I48.91 Unspecified atrial fibrillation; K21.9 Gastro-esophageal reflux disease without esophagitis; I10 Essential (primary) hypertension; Z95.0 Presence of cardiac pacemaker; M47.892 Other spondylosis, cervical region; Z79.01 Long term (current) use of anticoagulants; R79.1 Abnormal coagulation profile
CPT/HCPCS: 36415; 36430; 36600; 71010; 80053; 80061; 80162; 80307; 80320; 81001; 82270; 82550; 82553; 82803; 83540; 83550; 83735; 83880; 84439; 84443; 84484; 85014; 85018; 85025; 85610; 85730; 86850; 86900; 86901; 86922; 87040; 93005; 93010; 94640; 94760; 96365; 96374; 97535; 99284; A4216; A4222; C9113; P9016; A4217; G0378; G0434; G6040; J0696; J1160; J1940; J2270; J2405; J2920; J2930; J3490; J7620; J7644

== ENCOUNTER 2017-05-29 13:31 | Inpatient (IN) | payer OTHER ==
[2017-05-29] MEDS ORDERED: NS 1000 ML 1,000 ML ONE (13:34)
[2017-05-29] MEDS: NS 1000 ML 1,000 ML IV SCH (13:43)
[2017-05-29] MEDS ORDERED: TORADOL 30 MG VIAL ONE (13:47)
[2017-05-29] MEDS ORDERED: TORADOL 30 MG VIAL IVP ONE (13:49)
--- NOTE | 2017-05-29 13:49 | DR.AMS ---
HPI - Time Seen Time seen: 13:45 - PCP Primary Care Physician: NA - HPI Comment HPI Comment: AMS, FEVER NOTED TODAY BY HOME HEALTH NURSE. PATIENT SLEEPY BUT IS FULLY AROUSABLE. FEVER NOTED IN ED. - Complaint Cheif Complaint Doctors Comments: AMS. Chief Complaint:: EMS STATES " HOME HEALTH NURSE CALLED FOR EMS AND THEY STATE PT WAS NOT ACTING RIGHT AND HE WAS SLUMPTED OVER ". Self Treatment fo Chief Complaint: UPON ARRIVAL EMS STATES PT WAS SLUMPED OVER, BS 110 ,, EMS STATES PTS TEMP IS 104.0 - Reviewed Nurses Notes Reviewed: Yes - Source History Provided: Patient, EMS - Mode of Arrival Mode of Arrival: EMS - Timing Onset of Chief Complaint: 05/29/17 Came On: Suddenly Symptoms: Unchanged Symptom Onset: Unknown - Duration Duration: Constant Duration: Days - Quality Quality: Decreased Alertness, Change in Behavior - Severity Severity: Severe - Context Recent: Fever, Cough - Associated Signs and Symptoms Associated Signs and Symptoms: Generalized Weakness, Change in Behavior, Decreased Oral Intake PMH - PMH Past Medical History: Yes Past Medical History: Anxiety, Arthritis, Asthma, CHF, COPD, Coronary Artery Disease, Depression, GERD, Hypertension, AR, Renal Disease Past Surgical History: Yes Surgical History: Angioplasty/Stents, CABG/Valve Surgery, Other - Family History History of Family Medical Conditions: Yes Family Medical History: Diabetes Mellitus, Cancer, Sudden Cardiac , Hypertension - Social History Does patient currently use any type of tobacco product: No Have you used tobacco products in the last 12 months: No Type of Tobacco Use: None Does any household member use tobacco: No Alcohol Use: None Do you use any recreational Drugs:: No Lives Where: Home - infectious screening In the last 2 months have you had wt loss of >10#?: NO Have you had fever, night sweats or hemotysis?: No Have you traveled outside the country in the last 6 months?: No Isolation: Standard ROS - Review of Systems Constitutional: Fever, Weakness, Fatigue, Loss of Appetite. negative: Chills Eyes: No Symptoms Reported. negative: Eye Pain, Discharge ENTM: negative: Ear Pain, Nose Discharge, Nose Congestion, Throat Pain Respiratoy: Non-Productive Cough, Short of Breath, Wheezing. negative: Hemoptysis Cardiovascular: negative: Chest Pain Gastrointestinal/Abdominal: No Symptoms Reported Genitourinary: No Symptoms Reported Neurological: Headache, Weakness, Dizziness Musculoskeletal: Muscle Pain Integumentary: No Symptoms Reported Hematologic/Lymphatic: No Symptoms Reported Endocrine: No Symptoms Reported All Other Systems: Reviewed and Negative PE - Vitals Vital Signs: Temp Pulse Pulse Resp BP BP BP 05/29/17 13:32 102.5 F H 99 H 74 22 106/51 106/51 05/29/17 13:31 75 22 109/54 04/13/17 15:00 157/56 157/56 04/13/17 14:00 147/53 Pulse Ox 05/29/17 13:32 93 L 05/29/17 13:31 99 04/13/17 15:00 04/13/17 14:00 - General Limitations: Altered Mental Status General Appearance: Other (SLEEPY) - Head Head Exam: Normal Inspection, Atraumatic, Normocephalic Head Exam Physical: Other (NONE) - Eyes Eye exam: PERRL. negative: Conjunctival Injection Pupils: Regular, Round: Bilateral, Reactive: Bilateral - ENT ENT Exam: Normal External Ear Exam External Ear Exam: Normal External Inspection TM/Canal Exam: Bilateral Normal Nose Exam: Normal Nose Exam Mouth Exam: Normal Inspection Throat Exam: Normal Inspection - Neck Neck Exam: Trachea Midline - Chest Chest Inspection: Symmetric Chest Wall Rise - Respiratory Respiratory Exam: Respiratory Distress Respiratory Exam: Bilateral Wheezing, Bilateral Rhonchi, Lower Wheezing, Lower Rhonchi - Cardiovascular Cardiovascular Exam: Regular Rate, Normal Rhythm, Normal Heart Sounds - Abdominal Exam Abdominal Exam: Normal Bowel Sounds, Soft. negative: Tenderness - Extremities Extremities Exam: Normal Inspection - Back Back Exam: Paraspinal Tenderness - Neurological Neurological Exam: Alert, Oriented X3 Motor Strength - LUE: 5/5 Motor Strength - RUE: 5/5 Motor Strength - LLE: 5/5 Motor Strength - RLE: 5/5 DTR: achilles tendon (L): 4+, achilles tendon (R): 4+, brachioradialis (L): 4+, brachioradialis (R): 4+, Patellar (L): 4+, patellar (R): 4+ - Psychological Psychiatric Exam: Other (SLEEPY) - Skin Skin Exam: Erythema MDM - Additional Information Obtained Additional Information Obtained From: Family - Differential Diagnosis Metabolic: Dehydration, Hypercalcemia, Hypernatremia, Hypoglycemia, Hyponatremia Structural: CVA, Mass Lesion Infectious: Sepsis, UTI Course - Treatment Treatment: SEE ORDERS - Consultation Consultation Comments: DISCUSS PATIENT WITH DR. CARRILLO. HE WILL ADMIT PATIENT. - Education/Counseling Education/Counseling: Patient, Family, Education Educated On: Treatment, Diagnosis, Needs for Follow Up ROR - Labs Reviewed Laboratory Results Reviewed?: Yes Result Diagrams: 05/30/17 05:28 05/30/17 05:28 Laboratory: WBC 7.1 X10^3/uL (3.6-10.0) 05/30/17 05:28 RBC 3.45 X10^6/uL (4.7-6.0) L 05/30/17 05:28 Hgb 9.1 g/dL (13.5-18.0) L 05/30/17 05:28 Hct 29.1 % (42.0-54.0) L 05/30/17 05:28 MCV 84.4 fL (80.0-100.0) 05/30/17 05:28 MCH 26.5 pg (27.0-34.0) L 05/30/17 05:28 MCHC 31.4 g/dL (33.0-35.0) L 05/30/17 05:28 RDW 19.6 % (11.6-16.5) H 05/30/17 05:28 Plt Count 188 X10^3/uL (150.0-450.0) 05/30/17 05:28 MPV 8.5 fL (7.4-11.0) 05/30/17 05:28 Neut % 88.1 % (42.0-75.0) H 05/30/17 05:28 Lymph % 5.6 % (21.0-51.0) L 05/30/17 05:28 [place] % 5.4 % (0.0-13.0) 05/30/17 05:28 Eos % 0.1 % (0.9-2.9) L 05/30/17 05:28 Baso % 0.8 % (0.2-1.0) 05/30/17 05:28 Neut # 6.2 x10^3/uL (2.2-4.8) H 05/30/17 05:28 Lymph # 0.4 X10^3/uL (1.3-2.9) L 05/30/17 05:28 [place] # 0.4 x10^3/uL (0.3-0.8) 05/30/17 05:28 Eos # 0.0 x10^3/uL (0.0-0.2) 05/30/17 05:28 Baso # 0.1 X10^3/uL (0.0-0.1) 05/30/17 05:28 Absolute Nucleated RBC 0.1 /100WBC 05/30/17 05:28 INR Target Range - 05/29/17 18:19 INR 1.11 (0.8-1.3) 05/29/17 18:19 PTT 34.9 SECONDS (22.9-36.5) 05/29/17 18:19 PTT Comment - 05/29/17 18:19 Sample Site Right brachial 05/29/17 15:14 ABG pH 7.360 (7.35-7.45) 05/29/17 15:14 ABG pCO2 42.0 mmHg (35.0-45.0) 05/29/17 15:14 ABG pO2 100.0 mmHg (80.0-100.0) 05/29/17 15:14 ABG HCO3 23.7 mmol/L (22-26) 05/29/17 15:14 ABG O2 Saturation 97.0 % (90-100) 05/29/17 15:14 ABG Base Excess -1.7 mmol/L (-2.0-2.0) 05/29/17 15:14 Brad Test Na 05/29/17 15:14 A-a Gradient 47.0 mmHg 05/29/17 15:14 FiO2 28.000 05/29/17 15:14 Blood Gas Comments Adeola well 05/29/17 15:14 Sodium 142 mmol/L (136-145) 05/30/17 05:28 Corrected Sodium TNP 05/30/17 05:28 Potassium 5.6 mmol/L (3.5-5.1) H 05/30/17 05:28 Chloride 111 mmol/L (98-107) H 05/30/17 05:28 Carbon Dioxide 24.0 mmol/L (21-32) 05/30/17 05:28 BUN 22 mg/dL (7-18) H 05/30/17 05:28 Creatinine 1.99 mg/dL (0.70-1.30) H 05/30/17 05:28 Est GFR (MDRD) Af Amer 44 (>60) L 05/30/17 05:28 Est GFR (MDRD) Non-Af 36 (>60) L 05/30/17 05:28 Glucose 73 mg/dL (65-99) 05/30/17 05:28 Lactic Acid 0.6 mmol/L (0.4-2.0) 05/29/17 14:05 Calcium 8.1 mg/dL (8.5-10.1) L 05/30/17 05:28 Corrected Calcium 9.3 mg/dL (8.5-10.1) 05/30/17 05:28 Magnesium 2.2 mg/dL (1.7-2.9) 05/29/17 18:19 Total Bilirubin 0.30 mg/dL (0.2-1.0) 05/30/17 05:28 AST 39 Units/L (15-37) H 05/30/17 05:28 ALT 9 Units/L (12-78) L 05/30/17 05:28 Alkaline Phosphatase 123 Units/L (46-116) H 05/30/17 05:28 Creatine Kinase 155 Units/L (39-308) 05/30/17 00:10 CK-MB (CK-2) 1.4 ng/mL (0-4.0) 05/30/17 00:10 CK/CKMB % Calc 0.9 % (<4) 05/30/17 00:10 Troponin I 0.05 ng/mL (0-1.5) 05/30/17 00:10 C-Reactive Protein 35.20 mg/L (0-3.0) H 05/29/17 14:05 Total Protein 5.7 g/dL (6.4-8.2) L 05/30/17 05:28 Albumin 2.5 g/dL (3.4-5.0) L 05/30/17 05:28 Globulin 3.2 g/dL (2.5-4.5) 05/30/17 05:28 Albumin/Globulin Ratio 0.8 Ratio (1.1-2.1) L 05/30/17 05:28 Specimen Type Random urine 05/29/17 15:16 Urine Color Yellow (YELLOW) 05/29/17 15:16 Urine Appearance Clear (CLEAR) 05/29/17 15:16 Urine pH 5.0 (5.0 - 8.0) 05/29/17 15:16 Ur Specific [place] 1.020 (1.000-1.030) 05/29/17 15:16 Urine Protein 1+ (NEGATIVE) 05/29/17 15:16 Urine Glucose (UA) Negative (NEGATIVE) 05/29/17 15:16 Urine Ketones Negative (NEGATIVE) 05/29/17 15:16 Urine Occult Blood Negative (NEGATIVE) 05/29/17 15:16 Urine Nitrite Negative (NEGATIVE) 05/29/17 15:16 Urine Bilirubin Negative (NEGATIVE) 05/29/17 15:16 Urine Urobilinogen Normal (NORMAL) 05/29/17 15:16 Ur Leukocyte Esterase Negative (NEGATIVE) 05/29/17 15:16 Urine RBC 0-1 /HPF (NEGATIVE) 05/29/17 15:16 Urine WBC 0-1 /HPF (NEGATIVE) 05/29/17 15:16 Ur Squamous Epith Cells Few /HPF (NEGATIVE) 05/29/17 15:16 Amorphous Sediment Trace /HPF (NEGATIVE) 05/29/17 15:16 Urine Bacteria Trace /HPF (NEGATIVE) 05/29/17 15:16 Ur Culture Indicated? No/not indicated 05/29/17 15:16 Urine Opiates Screen Positive (NEG=<300) 05/29/17 15:17 Urine Methadone Screen Negative (NEG=<300) 05/29/17 15:17 Ur Barbiturates Screen Negative (NEG=<200) 05/29/17 15:17 Ur Phencyclidine Scrn Negative (NEG=<25) 05/29/17 15:17 Ur Amphetamines Screen Negative (NEG=<1000) 05/29/17 15:17 U Benzodiazepines Scrn Positive (NEG=<200) 05/29/17 15:17 Urine Cocaine Screen Negative (NEG=<300) 05/29/17 15:17 U Marijuana (THC) Screen Negative (NEG=<50) 05/29/17 15:17 - XRAY XRAY Interpreted by: Radiologist XRAY Findings: REPORT DISCUSS WITH FAMILY - EKG Rhythm: Paced - Diagnosis Discharge Problem: Hyperkalemia, Dehydration Mental status alteration Qualifiers: Altered mental status type: transient alteration of awareness Qualified Code(s) : R40.4 - Transient alteration of awareness Fever Qualifiers: Fever type: unspecified Qualified Code(s): R50.9 - Fever, unspecified - Discharge Plan Disposition: 09 ADMITTED INPATIENT Condition: Stable - Follow ups/Referrals - Instructions
[2017-05-29] MEDS ORDERED: TORADOL 15 MG VIAL IVP ONE (13:51)
--- NOTE | 2017-05-29 14:29 | RAD ---
HISTORY: Chest pain Study: Chest AP portable Comparison: April 12, 2017 Findings: There is a pacemaker present on the left. The heart is enlarged. No congestive heart failure is noted . The aorta is calcified. The lungs are free of acute alveolar infiltrates. There is minimal subsegme ntal atelectasis in the right lung base. The bony thorax is unremarkable. IMPRESSION: Cardiomegaly without congestive heart failure No infiltrates Reported By:
[2017-05-29 14:30] LABS: BASOPHILS % (AUTO) 0.6 % (0.2-1.0); EOSINOPHILS # (AUTO) 0.1 x10^3/uL (0.0-0.2); EOSINOPHILS % (AUTO) 1.2 % (0.9-2.9); HEMATOCRIT 27.7 % (42.0-54.0); HEMOGLOBIN 9.1 g/dL (13.5-18.0); LYMPHOCYTES # (AUTO) 0.3 X10^3/uL (1.3-2.9); MEAN CORPUSCULAR HEMOGLOBIN 27.2 pg (27.0-34.0); MEAN CORPUSCULAR HGB CONC 32.8 g/dL (33.0-35.0); MEAN CORPUSCULAR VOLUME 83.1 fL (80.0-100.0); MEAN PLATELET VOLUME 8.2 fL (7.4-11.0); MONOCYTES # (AUTO) 0.4 x10^3/uL (0.3-0.8); MONOCYTES % (AUTO) 5.6 % (0.0-13.0); NEUTROPHILS # (AUTO) 6.1 x10^3/uL (2.2-4.8); NEUTROPHILS % (AUTO) 88.6 % (42.0-75.0); PLATELET COUNT 192 X10^3/uL (150.0-450.0); RED BLOOD COUNT 3.33 X10^6/uL (4.7-6.0); RED CELL DISTRIBUTION WIDTH 19.6 % (11.6-16.5); WHITE BLOOD COUNT 6.9 X10^3/uL (3.6-10.0)
--- NOTE | 2017-05-29 14:32 | CT ---
HISTORY: Altered mental status and confusion. Noncontrast head CT examination. Comparison: Head CT exam dated March 23, 2017. Technique: Multiple axial images of the brain were obtained from the skull base to the vertex without administra tion of IV contrast. 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 There is moderat e sulcal and cisternal prominence as well as atherosclerotic change in the proximal intracranial webb tid and vertebral arteries, which is not out of proportion to the patient's stated age. There is diff use CT density alteration seen in the periventricular white matter of the high and mid-convexity, whi ch is likely in the setting of small vessel disease and not out of proportion to the patient's stated age. There is mild bilateral ex vacuo ventricular dilatation without evidence for hydrocephalus or h erniation syndrome. No midline shift is evident. No acute intraparenchymal hemorrhage or mass can be identified. No extra-axial fluid collections are seen. No alteration in the attenuation of the brai n parenchyma can be identified to suggest acute or subacute ischemic change. However, if the patients symptoms are clinically & neurologically concerning for an acute ischemic event, then MR imaging of the brain with DWI sequencing would likely be beneficial to exclude an acute CVA. The paranasal sinus es and mastoid air cells are clear. The other extracranial structures are unremarkable. IMPRESSION: 1. No acute intracranial process, bleed, or changes seen. 2. Age-appropriate intra-cranial changes of advancing age. Reported By:
[2017-05-29] MEDS ORDERED: TYLENOL 500 MG TAB EXTRA STRENGTH PO ONE ×2 (14:33→14:34)
[2017-05-29 14:47] LABS: BLOOD UREA NITROGEN 19 mg/dL (7-18); CALCIUM 7.8 mg/dL (8.5-10.1); CHLORIDE 110 mmol/L (98-107); COR NA(FOR HYPERGLY) 140 mmol/L (136-145); CREATININE 2.07 mg/dL (0.70-1.30); SODIUM 140 mmol/L (136-145); TROPONIN I 0.08 ng/mL (0-1.5); eGFR BLACK RACES 42 (>60); eGFR NON BLACK RACES 34 (>60)
[2017-05-29 14:48] LABS: LACTIC ACID 0.6 mmol/L (0.4-2.0)
[2017-05-29 14:52] LABS: ALANINE AMINOTRANSFERASE 11 Units/L (12-78); ALBUMIN 2.6 g/dL (3.4-5.0); ALKALINE PHOSPHATASE 133 Units/L (46-116); ASPARTATE AMINO TRANSFERASE 14 Units/L (15-37); CKMB % 1.6 % (<4); COR CA(FOR HYPOALB) 8.9 mg/dL (8.5-10.1); CREATINE KINASE 62 Units/L (39-308); CREATINE KINASE MB < 1.0 ng/mL (0-4.0); TOTAL PROTEIN 5.8 g/dL (6.4-8.2)
[2017-05-29 15:26] LABS: ABG BASE EXCESS -1.7 mmol/L (-2.0-2.0); ABG HCO3 23.7 mmol/L (22-26)
[2017-05-29 15:44] LABS: BILIRUBIN,URINE NEGATIVE (NEGATIVE); BLOOD/HEMOGLOBIN,URINE NEGATIVE (NEGATIVE); GLUCOSE, URINE NEGATIVE (NEGATIVE); KETONES,URINE NEGATIVE (NEGATIVE); LEUKOCYTE ESTERASE ,URINE NEGATIVE (NEGATIVE); NITRITES,URINE NEGATIVE (NEGATIVE); PROTEIN,URINE 1+ (NEGATIVE); UROBILINOGEN,URINE NORMAL (NORMAL)
[2017-05-29] MEDS ORDERED: D50W ABBOJECT SYR IV ONE (15:49)
[2017-05-29] MEDS ORDERED: HumuLIN R SUBCUT ONE (15:50)
[2017-05-29] MEDS ORDERED: CALCIUM CHLORIDE INJ IV ONE (15:51)
[2017-05-29 15:57] LABS: AMORPHOUS SEDIMENT,UR TRACE /HPF (NEGATIVE); APPEARANCE,URINE CLEAR (CLEAR); BACTERIA,URINE TRACE /HPF (NEGATIVE); COLOR,URINE YELLOW (YELLOW); RBC,URINE 0-1 /HPF (NEGATIVE); SQUAMOUS EPITHELIAL CELL,UR FEW /HPF (NEGATIVE)
[2017-05-29] MEDS: ZOSYN VIAL 3.375 GM IV SCH ×3 (16:00→21:08)
[2017-05-29] MEDS ORDERED: CALCIUM GLUCONATE 10% IV ONE (16:02)
[2017-05-29] MEDS ORDERED: HumuLIN R ONE (16:03)
[2017-05-29] MEDS ORDERED: D50W ABBOJECT SYR ONE (16:03)
[2017-05-29] MEDS ORDERED: NS 100 ML IV + SPIKE MINIBAG* 100 ML IV ONE ×2 (16:29→20:57)
[2017-05-29 16:30] VITALS: BMI 22.8
[2017-05-29] MEDS ORDERED: ROCEPHIN 1 GM IV PREMIX * OUT OF STOCK 50 ML IV ONE (17:40)
[2017-05-29] MEDS: ROCEPHIN VIAL 1 GM 1 GM in NS 50 ML IV + SPIKE MINIBAG* 50 ML IV SCH (17:48)
[2017-05-29 18:52] LABS: CKMB % 1.4 % (<4); CREATINE KINASE 71 Units/L (39-308); CREATINE KINASE MB < 1.0 ng/mL (0-4.0); TROPONIN I 0.08 ng/mL (0-1.5)
[2017-05-29] MEDS: SNACK - Diabetic Appropriate PO SCH (21:13)
[2017-05-30 01:08] LABS: CKMB % 0.9 % (<4); CREATINE KINASE MB 1.4 ng/mL (0-4.0); TROPONIN I 0.05 ng/mL (0-1.5)
[2017-05-30] MEDS: NS 1000 ML 1,000 ML IV SCH ×3 (01:43→13:34)
[2017-05-30] MEDS ORDERED: NS 100 ML IV + SPIKE MINIBAG* 100 ML IV ONE (05:39)
[2017-05-30] MEDS: ZOSYN VIAL 3.375 GM IV SCH (05:46)
[2017-05-30 05:57] LABS: ALANINE AMINOTRANSFERASE 9 Units/L (12-78); ALBUMIN 2.5 g/dL (3.4-5.0); ALKALINE PHOSPHATASE 123 Units/L (46-116); ASPARTATE AMINO TRANSFERASE 39 Units/L (15-37); BLOOD UREA NITROGEN 22 mg/dL (7-18); CALCIUM 8.1 mg/dL (8.5-10.1); CHLORIDE 111 mmol/L (98-107); COR CA(FOR HYPOALB) 9.3 mg/dL (8.5-10.1); CREATININE 1.99 mg/dL (0.70-1.30); SODIUM 142 mmol/L (136-145); TOTAL PROTEIN 5.7 g/dL (6.4-8.2); eGFR BLACK RACES 44 (>60); eGFR NON BLACK RACES 36 (>60)
[2017-05-30 06:24] LABS: BASOPHILS # (AUTO) 0.1 X10^3/uL (0.0-0.1); BASOPHILS % (AUTO) 0.8 % (0.2-1.0); EOSINOPHILS % (AUTO) 0.1 % (0.9-2.9); HEMATOCRIT 29.1 % (42.0-54.0); HEMOGLOBIN 9.1 g/dL (13.5-18.0); LYMPHOCYTES # (AUTO) 0.4 X10^3/uL (1.3-2.9); LYMPHOCYTES % (AUTO) 5.6 % (21.0-51.0); MEAN CORPUSCULAR HEMOGLOBIN 26.5 pg (27.0-34.0); MEAN CORPUSCULAR HGB CONC 31.4 g/dL (33.0-35.0); MEAN CORPUSCULAR VOLUME 84.4 fL (80.0-100.0); MEAN PLATELET VOLUME 8.5 fL (7.4-11.0); MONOCYTES # (AUTO) 0.4 x10^3/uL (0.3-0.8); MONOCYTES % (AUTO) 5.4 % (0.0-13.0); NEUTROPHILS # (AUTO) 6.2 x10^3/uL (2.2-4.8); NEUTROPHILS % (AUTO) 88.1 % (42.0-75.0); PLATELET COUNT 188 X10^3/uL (150.0-450.0); RED BLOOD COUNT 3.45 X10^6/uL (4.7-6.0); RED CELL DISTRIBUTION WIDTH 19.6 % (11.6-16.5); WHITE BLOOD COUNT 7.1 X10^3/uL (3.6-10.0)
[2017-05-30] MEDS ORDERED: NS 500 ML IV 500 ML IV ONE ×2 (06:58→07:00)
[2017-05-30] MEDS: NS 500 ML IV 500 ML IV SCH (07:11)
[2017-05-30] MEDS: ROCEPHIN VIAL 1 GM 1 GM in NS 50 ML IV + SPIKE MINIBAG* 50 ML IV SCH (09:03)
--- NOTE | 2017-05-30 12:43 | DR.H&P ---
H&P - History & Physical for Day of: H&P Date: 05/29/17 - Chief Complaint Chief Complaint: WEAKNESS, FEVER - Allergies Allergies/Adverse Reactions: Allergies Allergy/AdvReac Type Severity Reaction Status Date / Time No Known Drug Allergies Allergy Verified 04/09/17 06:33 - History of Present Illness History of Present Illness: EMS STATES " HOME HEALTH NURSE CALLED FOR EMS AND THEY STATE PT WAS NOT ACTING RIGHT AND HE WAS SLUMPTED OVER ". [facility] STATES PT WAS SLUMPED OVER, BS 110, EMS STATES PTS TEMP IS 104.0. PT HAS PMH OF CHF, COPD, CAD, HTN, CRF AND OA. PT ADMITTED TO ICU FOR FURTHER EVALUATION OF AMS. - Past Medical History Past Medical History: Anxiety, Arthritis, Asthma, CHF, COPD, Coronary Artery Disease, Depression, GERD, Hypertension, CT, Renal Disease Additional Medical History: GLAUCOMA, BACK PAIN, INSOMNIA - Past Surgical History Surgical History: Angioplasty/Stents, CABG/Valve Surgery, Other Additional Surgical History: PACEMAKER, DEFIBRILLATOR - Family History Family Medical History: Diabetes Mellitus, Cancer, Sudden Cardiac , Hypertension - Social History Does patient currently use any type of tobacco product: No Have you used tobacco products in the last 12 months: No Type of Tobacco Use: None Does any household member use tobacco: No Alcohol Use: None Drug Use: None - Medications Home Medications: Albuterol Sulfate [Proair Hfa] 1 inh INH DAILY 05/29/17 [History Confirmed 05/29] Alprazolam [Alprazolam] 1 tab PO BID PRN 05/29/17 [History Confirmed 05/29/17] Amiodarone HCl [Amiodarone HCl] 1 tab PO DAILY 05/29/17 [History Confirmed 05/29] Buspirone HCl [Buspirone HCl] 1 tab PO BID 05/29/17 [History Confirmed 05/29/17] Carvedilol [COREG TAB 6.25 MG *] 1 tab PO BID 05/29/17 [History Confirmed ] Carvedilol [COREG TAB 6.25 MG *] 1 tab PO BID 05/29/17 [History Confirmed ] Cilostazol [PLETAL tab 100 mg *] 50 mg PO BID 05/29/17 [History Confirmed ] Digoxin [Digox] 1 tab PO DAILY 05/29/17 [History Confirmed 05/29/17] Furosemide [LASIX TAB 40 MG *] 1 tab PO BID 05/29/17 [History Confirmed 05/29/17 ] Furosemide [LASIX TAB 40 MG *] 1 tab PO BID 05/29/17 [History Confirmed 05/29/17 ] Gabapentin [NEURONTIN CAP 300 mg *] 1 tab PO TID 05/29/17 [History Confirmed 02/07] Hydrocodone-Acet 10/325 mg [NORCO 10 MG/325 MG *] 1 tab PO TID PRN 05/29/17 [ History Confirmed 05/29/17] Levocetirizine Dihydrochloride [Levocetirizine Dihydrochloride] 1 tab PO DAILY 05/29/17 [History Confirmed 05/29/17] Levocetirizine Dihydrochloride [Levocetirizine Dihydrochloride] 1 tab PO DAILY 05/29/17 [History Confirmed 05/29/17] Montelukast Sodium [Montelukast Sodium] 1 tab PO DAILY 05/29/17 [History Confirmed 05/29/17] Montelukast Sodium [Montelukast Sodium] 1 tab PO DAILY 05/29/17 [History Confirmed 05/29/17] Morphine Sulfate [Morphine Sulfate ER] 1 tab PO BID 05/29/17 [History Confirmed 05/29/17] Pantoprazole Sodium [Pantoprazole Sodium] 1 tab PO DAILY 05/29/17 [History Confirmed 05/29/17] Potassium Chloride [Potassium Chloride] 1 tab PO BID 05/29/17 [History Confirmed 05/29/17] Potassium Chloride [Potassium Chloride] 1 tab PO BID 05/29/17 [History Confirmed 05/29/17] Ranitidine HCl [Ranitidine HCl] 1 tab PO BID 05/29/17 [History Confirmed ] Sacubitril/Valsartan [Entresto 49 mg-51 mg Tablet] 1 tab PO BID 05/29/17 [ History Confirmed 05/29/17] Spironolactone [Spironolactone] 1 tab PO DAILY 05/29/17 [History Confirmed 05/29] Spironolactone [Spironolactone] 1 tab PO DAILY 05/29/17 [History Confirmed 05/29] Tamsulosin HCl [Tamsulosin HCl] 1 tab PO BID 05/29/17 [History Confirmed ] Tiotropium [place] Monohydrate [SPIRIVA HANDIHALER (30 DOSE) *] 1 inh INH DAILY 05/29/17 [History Confirmed 05/29/17] - Review of Systems Constitutional: Weakness Eyes: No Symptoms Reported ENT: No Symptoms Reported Respiratory: Cough, SOB with Excertion, Wheezing Cardiovascular: No Symptoms Reported, Edema Gastrointestinal: No Symptoms Reported Genitourinary: No Symptoms Reported Musculoskeletal: Back Pain, Leg Pain Skin: No Symptoms Reported Neurological: Weakness, Confusion - Physical Exam Vital Signs: Temperature 98.9 F Pulse Rate [Left Brachial] 79 Pulse Rate 99 Respiratory Rate 17 Blood Pressure [Left Arm] 106/51 Blood Pressure [Right Arm] 136/63 Blood Pressure 106/51 O2 Sat by Pulse Oximetry 94 Oriented: Person Eyes: Normal Ear: Normal Nose: Normal Respiratory: Diminished Throughout Cardiovascular: Normal, Edema : Normal Auscultation: Bowel Sounds: Normal Palpation: Normal Tenderness: Normal Skin: Decreased Turgur, Bruising Musculoskeletal: Back:Thoracic, Back:Lumbar, Sensory Deficit Psychiatric: Anxiety, Depression Mood Description: Calm, Depressed Speech Pattern: Delayed - Assessment/Plan (1) Mental status alteration Qualifiers: Altered mental status type: transient alteration of awareness Qualified Code(s): R40.4 - Transient alteration of awareness Status: Acute Plan: ADMIT ICU, R/O SEPSIS. BLOOD AND URINE CULTURES, LACTIC ACID. CARDIAC MONITORING, CXR. RESP THERAPY, O2. IV ATBX, CORRECT ELECTROLYTE IMBALANCE (2) Renal insufficiency Status: Acute (3) Dehydration Status: Acute (4) Hyperkalemia Status: Acute (5) CHF (congestive heart failure) Qualifiers: Congestive heart failure type: combined Congestive heart failure chronicity : acute on chronic Qualified Code(s): I50.43 - Acute on chronic combined systolic (congestive) and diastolic (congestive) heart failure Status: Acute (6) Degeneration, intervertebral disc, lumbar Status: Acute (7) GERD (gastroesophageal reflux disease) Status: Acute (8) CHF (congestive heart failure) Status: Chronic
[2017-05-30] MEDS: NORCO 10/325 TAB PO PRN ×2 (13:33→22:18)
[2017-05-30] MEDS: LASIX PO SCH ×2 (13:34→21:30)
[2017-05-30] MEDS: ZOSYN VIAL 2.25 GM 2.25 GM in NS 100 ML IV + SPIKE MINIBAG* 100 ML IV SCH ×2 (13:35→21:29)
[2017-05-30] MEDS ORDERED: ZOSYN VIAL 2.25 GM IV SCH (14:00)
[2017-05-30] MEDS: Atrovent NEB TX 0.02% NEB SCH ×2 (16:07→20:41)
[2017-05-30] MEDS ORDERED: MAALOX or MYLANTA PO PRN (19:44)
[2017-05-30] MEDS ORDERED: PATIENT'S HOME MEDICATION (Buspirone Hcl [Buspirone Hcl] 1 TAB) PO SCH (21:00)
[2017-05-30] MEDS: PLETAL PO SCH (21:29)
[2017-05-30] MEDS: COREG TAB 6.25 MG PO SCH (21:30)
[2017-05-30] MEDS: FLOMAX PO SCH (21:30)
[2017-05-30] MEDS: BUSPAR PO SCH (21:30)
[2017-05-30] MEDS: SNACK - Diabetic Appropriate PO SCH (21:39)
[2017-05-31] MEDS: NORCO 10/325 TAB PO PRN ×2 (04:29→10:16)
[2017-05-31 06:14] LABS: BASOPHILS % (AUTO) 1.1 % (0.2-1.0); EOSINOPHILS # (AUTO) 0.1 x10^3/uL (0.0-0.2); EOSINOPHILS % (AUTO) 1.8 % (0.9-2.9); HEMATOCRIT 23.7 % (42.0-54.0); LYMPHOCYTES # (AUTO) 0.5 X10^3/uL (1.3-2.9); LYMPHOCYTES % (AUTO) 12.9 % (21.0-51.0); MEAN PLATELET VOLUME 8.2 fL (7.4-11.0); MONOCYTES # (AUTO) 0.6 x10^3/uL (0.3-0.8); NEUTROPHILS % (AUTO) 71.2 % (42.0-75.0); PLATELET COUNT 182 X10^3/uL (150.0-450.0); RED BLOOD COUNT 2.89 X10^6/uL (4.7-6.0); RED CELL DISTRIBUTION WIDTH 19.5 % (11.6-16.5); WHITE BLOOD COUNT 4.3 X10^3/uL (3.6-10.0)
[2017-05-31] MEDS: ZOSYN VIAL 2.25 GM 2.25 GM in NS 100 ML IV + SPIKE MINIBAG* 100 ML IV SCH (06:19)
[2017-05-31] MEDS: NS 1000 ML 1,000 ML IV SCH (06:23)
[2017-05-31 06:34] LABS: ALANINE AMINOTRANSFERASE 8 Units/L (12-78); ALBUMIN 2.2 g/dL (3.4-5.0); ALKALINE PHOSPHATASE 96 Units/L (46-116); ASPARTATE AMINO TRANSFERASE 15 Units/L (15-37); BLOOD UREA NITROGEN 20 mg/dL (7-18); CALCIUM 8.1 mg/dL (8.5-10.1); CARBON DIOXIDE 26.9 mmol/L (21-32); CHLORIDE 105 mmol/L (98-107); COR CA(FOR HYPOALB) 9.5 mg/dL (8.5-10.1); CREATININE 1.76 mg/dL (0.70-1.30); SODIUM 138 mmol/L (136-145); TOTAL PROTEIN 5.4 g/dL (6.4-8.2); eGFR BLACK RACES 50 (>60); eGFR NON BLACK RACES 42 (>60)
--- NOTE | 2017-05-31 06:52 | RAD ---
HISTORY: Chest pain Study: AP portable chest Comparison: May 29, 2017 Findings: The patient is rotated to the left. There is a pacemaker present on the left. The heart remains enlar ged. No definite congestive heart failure is noted. The aorta is calcified. The lungs are well inflat ed and free of acute alveolar infiltrates. No pleural effusions are identified. The bony thorax is un remarkable. IMPRESSION: Cardiomegaly without congestive heart failure No infiltrates Reported By:
[2017-05-31 07:25] LABS: HEMOGLOBIN 7.8 g/dL (13.5-18.0)
[2017-05-31 07:26] LABS: HYPOCHROMASIA 1+; MICROCYTOSIS 1+; PLATELET MORPHOLOGY COMMENT NORMAL (NORMAL)
[2017-05-31] MEDS: PLETAL PO SCH (08:15)
[2017-05-31] MEDS: FLOMAX PO SCH (08:15)
[2017-05-31] MEDS: LASIX PO SCH (08:18)
[2017-05-31] MEDS: COREG TAB 6.25 MG PO SCH (08:18)
[2017-05-31] MEDS: BUSPAR PO SCH (08:20)
[2017-05-31] MEDS: ROCEPHIN VIAL 1 GM 1 GM in NS 50 ML IV + SPIKE MINIBAG* 50 ML IV SCH (08:45)
[2017-05-31] MEDS ORDERED: CORDARONE TAB 200 MG PO SCH (09:00)
[2017-05-31] MEDS ORDERED: LANOXIN PO SCH (09:00)
[2017-05-31] MEDS ORDERED: PROTONIX TAB 40 MG PO SCH (09:00)
[2017-05-31] MEDS ORDERED: PATIENT'S HOME MEDICATION (Tiotropium Bromide Monohydrate 1 INH) INH SCH (09:00)
[2017-05-31] MEDS ORDERED: SINGULAIR TAB 10 MG PO SCH (09:00)
[2017-05-31] MEDS: Atrovent NEB TX 0.02% NEB SCH (09:14)
[2017-05-31] MEDS: NS 500 ML IV 500 ML IV SCH (10:17)
[2017-05-31 11:41] VITALS: BP 133/63
== END 2017-05-31 12:15 | disposition home or self-care (01) | DRG 640 ==
LOC: ER 13:33 → ICU 15:58
PROVIDERS: ADMIT Internal Medicine; ATTEND Internal Medicine
DX: E87.5 Hyperkalemia (principal); R40.4 Transient alteration of awareness; E86.0 Dehydration; R50.9 Fever, unspecified; I50.43 Acute on chronic combined systolic (congestive) and diastolic (congestive) heart failure; F41.8 Other specified anxiety disorders; J45.998 Other asthma; J44.9 Chronic obstructive pulmonary disease, unspecified; I25.10 Atherosclerotic heart disease of native coronary artery without angina pectoris; K21.9 Gastro-esophageal reflux disease without esophagitis; F32.89 Other specified depressive episodes; I10 Essential (primary) hypertension; R94.31 Abnormal electrocardiogram [ECG] [EKG]; R53.1 Weakness; R06.02 Shortness of breath; N28.9 Disorder of kidney and ureter, unspecified; M51.36 Other intervertebral disc degeneration, lumbar region; M13.89 Other specified arthritis, multiple sites
CPT/HCPCS: 36415; 36600; 70450; 71010; 80053; 80162; 80307; 81001; 82550; 82553; 82803; 83605; 83735; 84132; 84484; 85025; 85610; 85730; 86140; 87040; 87070; 87205; 93005; 93010; 94640; 96365; 96367; 96374; 96375; 99284; 99285; A4222; G0434; J0610; J0696; J1815; J1885; J2543; J3490; J7644

== ENCOUNTER 2017-06-25 20:35 | Inpatient (IN) | payer OTHER ==
--- NOTE | 2017-06-25 20:46 | DR.GENAD ---
HPI - PCP Primary Care Physician: Luis Alfredo - Complaint/Symptoms Chief Complaint Doctors Comments: Patient presented to the ED via EMS with complaint that he could not breath. He has COPD and uses 3 liters oxygen daily. Denies cigarettes and denies fever. PMH - PMH Past Medical History: Anxiety, Arthritis, Asthma, CHF, COPD, Coronary Artery Disease, Depression, GERD, Hypertension, [place], Renal Disease Past Surgical History: Yes Surgical History: Angioplasty/Stents, CABG/Valve Surgery, Other - Family History Family Medical History: Diabetes Mellitus, Cancer, Sudden Cardiac , Hypertension - Social History Do you use any recreational Drugs:: No ROS - Review of Systems Eyes: No Symptoms Reported ENTM: No Symptoms Reported Respiratoy: No Symptoms Reported Cardiovascular: No Symptoms Reported Gastrointestinal/Abdominal: No Symptoms Reported Genitourinary: No Symptoms Reported Neurological: No Symptoms Reported Musculoskeletal: No Symptoms Reported Integumentary: No Symptoms Reported Hematologic/Lymphatic: No Symptoms Reported Endocrine: No Symptoms Reported Psychiatric: No Symptoms Reported All Other Systems: Reviewed and Negative PE - Vital Signs Vitals: Temperature 102 F Pulse Rate [Apical] 91 Pulse Rate 88 Respiratory Rate 24 Blood Pressure [Left Arm] 106/51 Blood Pressure [Right Arm] 143/65 Blood Pressure 145/66 O2 Sat by Pulse Oximetry 86 - General Limitations: No Limitations General Appearance: Alert, In Distress - Head Head Exam: Normal Inspection, Atraumatic - Eyes Eye exam: Normal Appearance, PERRL, EOMI - ENT ENT Exam: Normal Exam External Ear Exam: Normal External Inspection TM/Canal Exam: Bilateral Normal Nose Exam: Normal Nose Exam Mouth Exam: Normal Inspection Throat Exam: Normal Inspection - Neck Neck Exam: Normal Inspection - Chest Chest Inspection: Normal Inspection - Respiratory Respiratory Exam: Normal Lung Sounds Bilat Respiratory Exam: Bilateral Clear to Auscultation - Cardiovascular Cardiovascular Exam: Regular Rate, Normal Rhythm - Abdominal Exam Abdominal Exam: Normal Inspection, Normal Bowel Sounds Abdominal Tenderness: negative: RUQ, RLQ, LUQ, LLQ, Epigastrium, Suprapubic, Diffuse, Mild, Moderate, Severe, Other - Extremities Extremities Exam: Normal Inspection, Full ROM - Back Back Exam: Normal Inspection, Full ROM - Neurologic Neurological Exam: Alert, Oriented X3, CN II-XII Intact - Psychiatric Psychiatric Exam: Normal Affect - Skin Skin Exam: Warm, Dry, Intact Course - Reevaluation 1st: Improved - Consultation Called: 10:45 (Dr Lobato agreed to admit for further treatment and managemtnt. ) ROR - Labs Reviewed Result Diagrams: 06/25/17 21:00 06/25/17 21:00 Laboratory: 06/25/17 20:52 Sputum - Expectorated Sputum - Final WBC 10.8 X10^3/uL (3.6-10.0) H 06/25/17 21:00 RBC 3.42 X10^6/uL (4.7-6.0) L 06/25/17 21:00 Hgb 8.9 g/dL (13.5-18.0) L 06/25/17 21:00 Hct 27.3 % (42.0-54.0) L 06/25/17 21:00 MCV 79.9 fL (80.0-100.0) L 06/25/17 21:00 MCH 26.1 pg (27.0-34.0) L 06/25/17 21:00 MCHC 32.7 g/dL (33.0-35.0) L 06/25/17 21:00 RDW 18.0 % (11.6-16.5) H 06/25/17 21:00 Plt Count 246 X10^3/uL (150.0-450.0) 06/25/17 21:00 MPV 8.7 fL (7.4-11.0) 06/25/17 21:00 Neut % 82.3 % (42.0-75.0) H 06/25/17 21:00 Lymph % 6.2 % (21.0-51.0) L 06/25/17 21:00 [place] % 9.6 % (0.0-13.0) 06/25/17 21:00 Eos % 0.5 % (0.9-2.9) L 06/25/17 21:00 Baso % 1.4 % (0.2-1.0) H 06/25/17 21:00 Neut # 8.9 x10^3/uL (2.2-4.8) H 06/25/17 21:00 Lymph # 0.7 X10^3/uL (1.3-2.9) L 06/25/17 21:00 [place] # 1.0 x10^3/uL (0.3-0.8) H 06/25/17 21:00 Eos # 0.0 x10^3/uL (0.0-0.2) 06/25/17 21:00 Baso # 0.2 X10^3/uL (0.0-0.1) H 06/25/17 21:00 Absolute Nucleated RBC 0.0 /100WBC 06/25/17 21:00 INR Target Range - 06/25/17 21:00 INR 0.98 (0.8-1.3) 06/25/17 21:00 Sample Site Lr 06/25/17 21:19 ABG pH 7.370 (7.35-7.45) 06/25/17:19 ABG pCO2 49.0 mmHg (35.0-45.0) H 06/25/17 21:19 ABG pO2 53.0 mmHg (80.0-100.0) L 06/25/17 21:19 ABG HCO3 28.3 mmol/L (22-26) H 06/25/17 21:19 ABG O2 Saturation 86.0 % (90-100) L 06/25/17 21:19 ABG Base Excess 2.3 mmol/L (-2.0-2.0) H 06/25/17 21:19 Brad Test Pos 06/25/17 21:19 A-a Gradient 114.0 mmHg 06/25/17 21:19 FiO2 32 06/25/17 21:19 Blood Gas Comments Adeola well ae 06/25/17 21:19 Sodium 135 mmol/L (136-145) L 06/25/17 21:00 Corrected Sodium 136 mmol/L (136-145) 06/25/17 21:00 Potassium 5.1 mmol/L (3.5-5.1) 06/25/17 21:00 Chloride 103 mmol/L (98-107) 06/25/17 21:00 Carbon Dioxide 26.0 mmol/L (21-32) 06/25/17 21:00 BUN 20 mg/dL (7-18) H 06/25/17 21:00 Creatinine 1.49 mg/dL (0.70-1.30) H 06/25/17 21:00 Est GFR (MDRD) Af Amer > 60 (>60) 06/25/17 21:00 Est GFR (MDRD) Non-Af 50 (>60) L 06/25/17 21:00 Glucose 142 mg/dL (65-99) H 06/25/17 21:00 Calcium 8.4 mg/dL (8.5-10.1) L 06/25/17 21:00 Corrected Calcium 9.1 mg/dL (8.5-10.1) 06/25/17 21:00 Magnesium 2.5 mg/dL (1.7-2.9) 06/25/17 21:00 Total Bilirubin 0.50 mg/dL (0.2-1.0) 06/25/17 21:00 AST 21 Units/L (15-37) 06/25/17 21:00 ALT 15 Units/L (12-78) 06/25/17 21:00 Alkaline Phosphatase 138 Units/L (46-116) H 06/25/17 21:00 Creatine Kinase 115 Units/L (39-308) 06/25/17 21:00 CK-MB (CK-2) 8.9 ng/mL (0-4.0) H* 06/25/17 21:00 CK/CKMB % Calc 7.7 % (<4) 06/25/17 21:00 Troponin I 1.47 ng/mL (0-1.5) 06/25/17 21:00 Total Protein 6.7 g/dL (6.4-8.2) 06/25/17 21:00 Albumin 3.1 g/dL (3.4-5.0) L 06/25/17 21:00 Globulin 3.6 g/dL (2.5-4.5) 06/25/17 21:00 Albumin/Globulin Ratio 0.9 Ratio (1.1-2.1) L 06/25/17 21:00 Influenza A (H1N1) PCR Not detected (NOT DETECT) 06/25/17 20:44 Influenza Type A (PCR) Negative (NEGATIVE) 06/25/17 20:44 Influenza Type B (PCR) Negative (NEGATIVE) 06/25/17 20:44 - XRAY XRAY Interpreted by: Radiologist (Chest: There is cardiomegaly with increased interstitial markings, worse on the prior. Effusions are likely. There is no pneumothorax. Pacemaker and AICD leads are noted. The patchy opacity in the lung bases could represent recurrent pneumonia. Impressions: Cardiomegaly and pulmonary edema compatible with CHF.) - Diagnosis Discharge Problem: Pneumonia Qualifiers: Pneumonia type: due to unspecified organism Laterality: unspecified laterality Lung location: unspecified part of lung Qualified Code(s): J18.9 - Pneumonia, unspecified organism COPD (chronic obstructive pulmonary disease) Qualifiers: COPD type: COPD with acute lower respiratory infection Qualified Code(s): J44.0 - Chronic obstructive pulmonary disease with acute lower respiratory infection - Discharge Plan Condition: Stable - Follow ups/Referrals Follow ups/Referrals: YARED LOBATO [Primary Care Provider] - 3 days - Instructions
[2017-06-25 21:10] LABS: BASOPHILS # (AUTO) 0.2 X10^3/uL (0.0-0.1); BASOPHILS % (AUTO) 1.4 % (0.2-1.0); EOSINOPHILS % (AUTO) 0.5 % (0.9-2.9); HEMATOCRIT 27.3 % (42.0-54.0); HEMOGLOBIN 8.9 g/dL (13.5-18.0); LYMPHOCYTES # (AUTO) 0.7 X10^3/uL (1.3-2.9); LYMPHOCYTES % (AUTO) 6.2 % (21.0-51.0); MEAN CORPUSCULAR HEMOGLOBIN 26.1 pg (27.0-34.0); MEAN CORPUSCULAR HGB CONC 32.7 g/dL (33.0-35.0); MEAN CORPUSCULAR VOLUME 79.9 fL (80.0-100.0); MEAN PLATELET VOLUME 8.7 fL (7.4-11.0); MONOCYTES % (AUTO) 9.6 % (0.0-13.0); NEUTROPHILS # (AUTO) 8.9 x10^3/uL (2.2-4.8); NEUTROPHILS % (AUTO) 82.3 % (42.0-75.0); PLATELET COUNT 246 X10^3/uL (150.0-450.0); RED BLOOD COUNT 3.42 X10^6/uL (4.7-6.0); WHITE BLOOD COUNT 10.8 X10^3/uL (3.6-10.0)
[2017-06-25 21:24] LABS: ABG BASE EXCESS 2.3 mmol/L (-2.0-2.0); ABG HCO3 28.3 mmol/L (22-26)
[2017-06-25 21:25] LABS: ABG ALLEN TEST POS; FRACTIONATED INSPIRED OXYGEN 32
[2017-06-25] MEDS ORDERED: SOLU-Medrol 125 MG VIAL IVP ONE (21:33)
[2017-06-25] MEDS ORDERED: DUONEB 0.5 MG/3 MG NEB ONE (21:33)
[2017-06-25] MEDS ORDERED: SOLU-Medrol 125 MG VIAL ONE (21:45)
[2017-06-25 22:02] LABS: ALANINE AMINOTRANSFERASE 15 Units/L (12-78); ALBUMIN 3.1 g/dL (3.4-5.0); ALKALINE PHOSPHATASE 138 Units/L (46-116); ASPARTATE AMINO TRANSFERASE 21 Units/L (15-37); BLOOD UREA NITROGEN 20 mg/dL (7-18); CALCIUM 8.4 mg/dL (8.5-10.1); CHLORIDE 103 mmol/L (98-107); CKMB % 7.7 % (<4); COR CA(FOR HYPOALB) 9.1 mg/dL (8.5-10.1); COR NA(FOR HYPERGLY) 136 mmol/L (136-145); CREATINE KINASE 115 Units/L (39-308); CREATININE 1.49 mg/dL (0.70-1.30); MAGNESIUM 2.5 mg/dL (1.7-2.9); SODIUM 135 mmol/L (136-145); TOTAL PROTEIN 6.7 g/dL (6.4-8.2); TROPONIN I 1.47 ng/mL (0-1.5); eGFR BLACK RACES > 60 (>60); eGFR NON BLACK RACES 50 (>60)
[2017-06-25 22:04] LABS: CREATINE KINASE MB 8.9 ng/mL (0-4.0)
--- NOTE | 2017-06-25 22:15 | RAD ---
Chest AP only Indication: Hypertension and dyspnea. Comparison: 05/31/2017. Findings: There is cardiomegaly with increased interstitial markings, worse on the prior. Effusions a re likely. There is no pneumothorax. Pacemaker and AICD leads are noted. The patchy opacity in the lung bases could represent recurrent pneumonia. Impression: 1. Cardiomegaly and pulmonary edema compatible with CHF. 2. Development is fax not excluded. Reported By:
[2017-06-25] MEDS: NS 1000 ML 1,000 ML IV SCH (22:30)
[2017-06-25] MEDS ORDERED: MORPHINE SULFATE INJ 4 MG IVP ONE (22:40)
[2017-06-25] MEDS ORDERED: MORPHINE SULFATE INJ 4 MG ONE (22:42)
[2017-06-25] MEDS: ZOSYN VIAL 4.5 GM 4.5 GM in NS 100 ML IV + SPIKE MINIBAG* 100 ML IV SCH (23:35)
[2017-06-25] MEDS ORDERED: NS 1/2 1000 ML IV 1,000 ML IV SCH (23:45)
[2017-06-25] MEDS ORDERED: NS 100 ML IV + SPIKE MINIBAG* 100 ML IV ONE (23:46)
[2017-06-25] MEDS ORDERED: ZOSYN VIAL 4.5 GM IV ONE (23:46)
[2017-06-26] MEDS ORDERED: NORCO 5/325 MG TAB PO PRN (00:12)
[2017-06-26 00:25] VITALS: BMI 25.4
[2017-06-26] MEDS: PROVENTIL NEB TX 0.083% 2.5MG/ 3ML NEB SCH ×3 (00:33→08:42)
[2017-06-26] MEDS ORDERED: VALIUM INJ IVP PRN (03:35)
[2017-06-26] MEDS: MORPHINE SULFATE INJ 2 MG INJ IVP PRN ×2 (03:54→08:36)
[2017-06-26] MEDS: NS 1000 ML 1,000 ML IV SCH (06:04)
[2017-06-26] MEDS: ZOSYN VIAL 4.5 GM 4.5 GM in NS 100 ML IV + SPIKE MINIBAG* 100 ML IV SCH (06:15)
[2017-06-26 08:09] LABS: CREATINE KINASE MB 15.5 ng/mL (0-4.0)
[2017-06-26 08:10] LABS: TROPONIN I 2.06 ng/mL (0-1.5)
[2017-06-26] MEDS ORDERED: HEPARIN SODIUM IN D5W 25,000 UNITS/500 ML BAG IV PRN (08:15)
[2017-06-26] MEDS ORDERED: NITRO-BID OINT 2% Multi-Dose tube TD ONE (08:23)
[2017-06-26] MEDS: PROTONIX INJ 40 MG VIAL IVP SCH ×2 (08:40→10:23)
--- NOTE | 2017-06-26 08:59 | DR.H&P ---
H&P - History & Physical for Day of: H&P Date: 06/26/17 - Chief Complaint Chief Complaint: CHEST PAIN, SOB, MID BACK PAIN - Allergies Allergies/Adverse Reactions: Allergies Allergy/AdvReac Type Severity Reaction Status Date / Time No Known Drug Allergies Allergy Verified 04/09/17 06:33 - History of Present Illness History of Present Illness: 66 WM ADMITTED FROM ER AFTER PRESENTING WITH SEVERE SOB, CP AND MID BACK PAIN. PT HAS HX OF COPD AND CHF. PT REPORTS GREATER THAN 5LBS WEIGHT GAIN IN LAST 24 HRS. PT HAS O2 AT HOME AND NEBULIZER MACHINE USING WITHOUT ANY IMPROVEMENT. PLAN TO ADMIT TO ICU, CARDIAC MONITORING, RESP THERAPY , SUPPLEMENTAL O2, CARDIAC ENZYMES. IV LASIX - Past Medical History Past Medical History: Anxiety, Arthritis, Asthma, CHF, COPD, Coronary Artery Disease, Depression, GERD, Hypertension, [place], Renal Disease Additional Medical History: GLAUCOMA, BACK PAIN, INSOMNIA - Past Surgical History Surgical History: Angioplasty/Stents, CABG/Valve Surgery, Other Additional Surgical History: PACEMAKER, DEFIBRILLATOR - Family History Family Medical History: Diabetes Mellitus, Cancer, Sudden Cardiac , Hypertension - Social History Does patient currently use any type of tobacco product: Yes Have you used tobacco products in the last 12 months: Yes Type of Tobacco Use: Cigarettes Does any household member use tobacco: Yes Alcohol Use: None Drug Use: None - Medications Home Medications: Aspirin EC [ASPIRIN EC 81 MG *] 81 mg PO DAILY 06/25/17 [History Confirmed 06/26] Tamsulosin HCl [Flomax] 0.4 mg PO DAILY 06/25/17 [History Confirmed 06/26/17] - Review of Systems Constitutional: Weakness Eyes: No Symptoms Reported ENT: No Symptoms Reported Respiratory: Shortness of Breath, SOB with Excertion, Wheezing Cardiovascular: Chest Pain, Light Headedness Gastrointestinal: Nausea Genitourinary: No Symptoms Reported Musculoskeletal: Back Pain Skin: No Symptoms Reported Neurological: Weakness - Physical Exam Vital Signs: Temperature 99.4 F Pulse Rate [Apical] 92 Pulse Rate 91 Respiratory Rate 26 Blood Pressure [Left Arm] 106/51 Blood Pressure [Right Arm] 150/70 Blood Pressure 145/66 O2 Sat by Pulse Oximetry 93 Oriented: Normal Eyes: Normal Ear: Normal Nose: Normal Throat: Dry Respiratory: Diminished Throughout Cardiovascular: Irregular, Edema : Normal Auscultation: Bowel Sounds: Normal Palpation: Normal Tenderness: Normal Skin: Normal Musculoskeletal: Back:Lumbar Psychiatric: Anxiety Mood Description: Anxious Affect: Anxious Speech Pattern: Clear, Appropriate - Assessment/Plan (1) Chest pain Status: Acute Plan: ADMIT ICU, RESP THERAPY, CARDIAC ENZYMES. EKGS, SUPPLEMENT O2, BB, LASIX. STRICT I & OS. RESUME HOME MEDS (2) Shortness of breath Status: Acute (3) CHF exacerbation Status: Acute (4) COPD (chronic obstructive pulmonary disease) Qualifiers: COPD type: COPD with acute lower respiratory infection Qualified Code(s): J44.0 - Chronic obstructive pulmonary disease with acute lower respiratory infection Status: Chronic (5) GERD (gastroesophageal reflux disease) Status: Chronic (6) Hypertension Status: Chronic (7) Pacemaker Status: Chronic
[2017-06-26] MEDS ORDERED: LEVAQUIN PREMIX IV 750 MG 750 MG/150 ML BAG IV SCH (09:00)
[2017-06-26] MEDS ORDERED: LASIX PO SCH (09:00)
[2017-06-26] MEDS ORDERED: LASIX IVP SCH (09:00)
[2017-06-26] MEDS ORDERED: ZOFRAN INJ 4 MG VIAL ONE (09:26)
[2017-06-26] MEDS ORDERED: HEPARIN SODIUM INJ 5000 UNITS IVP ONE (09:30)
[2017-06-26] MEDS ORDERED: HEPARIN SODIUM INJ 5000 UNITS ONE (09:37)
[2017-06-26 10:44] VITALS: BP 143/67
== END 2017-06-26 10:15 | disposition short-term general hospital (02) | DRG 313 ==
LOC: ER 20:38 → ICU 23:03
PROVIDERS: ADMIT Internal Medicine; ATTEND Internal Medicine
DX: R07.89 Other chest pain (principal); R06.02 Shortness of breath; J15.1 Pneumonia due to Pseudomonas; M54.89 Other dorsalgia; I50.9 Heart failure, unspecified; K21.9 Gastro-esophageal reflux disease without esophagitis; I10 Essential (primary) hypertension; Z95.0 Presence of cardiac pacemaker; R94.31 Abnormal electrocardiogram [ECG] [EKG]; J44.1 Chronic obstructive pulmonary disease with (acute) exacerbation
CPT/HCPCS: 36415; 36600; 71010; 80053; 82550; 82553; 82803; 83735; 84484; 85025; 85610; 85730; 87040; 87070; 87077; 87186; 87205; 87502; 87503; 93005; 93010; 94640; 96365; 96367; 96374; 96375; 99285; A4222; C9113; J1644; J1940; J2270; J2405; J2543; J2930; J7613; J7620